=== PATIENT | male | born 1945 ===

== ENCOUNTER 2017-05-28 12:25 | Inpatient (IN) | payer MEDICARE ==
--- NOTE | 2017-05-28 14:28 | ED PDOC ---
HPI: Back Time Seen by Provider: 05/28/17 13:39 Chief Complaint (Nursing): Back Pain Chief Complaint (Provider): Back pain History Per: Patient History/Exam Limitations: no limitations Onset/Duration Of Symptoms: Persistent Current Symptoms Are (Timing): Still Present Additional Complaint(s): 72 year old male presents to the ER with complains of lower back pain, ongoing for months. Patient reports taking over the counter medications and prescribed medications with no improvement or relief. He has a history of multiple lumbar spine herniated discs and degenerative disease. Patients denies any associated fall, injury, trauma, weakness, numbness, tingling, or incontinence. PMD: Toro Mcdaniel Past Medical History Reviewed: Historical Data, Nursing Documentation, Vital Signs Vital Signs: Last Vital Signs Temp 98.3 F 05/28/17 12:54 Pulse 79 05/28/17 12:54 Resp 18 05/28/17 12:54 BP 124/70 05/28/17 12:54 Pulse Ox 99 05/28/17 12:54 - Medical History PMH: Back Problems (lumbar spine herniated discs) - Family History Family History: States: Unknown Family Hx - Home Medications Home Medications: Ambulatory Orders Medication Instructions Recorded Aspirin [Ecotrin] 81 mg PO BID 05/28/17 Atorvastatin [Lipitor] 10 mg PO HS 05/28/17 Cyanocobalamin [Vitamin B12] 500 mcg PO DAILY 05/28/17 Dutasteride [Avodart] 0.5 mg PO HS 05/28/17 Ergocalciferol (Vitamin D2) 50,000 unit PO MO 05/28/17 [Vitamin D2] Losartan [Cozaar] 100 mg PO DAILY 05/28/17 Metformin ER [Glucophage XR] 500 mg PO QPM 05/28/17 Metoprolol Succinate [Toprol XL] 100 mg PO DAILY 05/28/17 Niacin [Niacin ER] 750 mg PO HS 05/28/17 Nitroglycerin 0.4 mg/hr [Nitro-Dur 1 patch TD DAILY 05/28/17 0.4 mg/hr Patch] Omeprazole [Omeprazole] 40 mg PO DAILY 05/28/17 Silodosin [Rapaflo] 4 mg PO HS 05/28/17 amLODIPine [Norvasc] 5 mg PO DAILY 05/28/17 - Allergies Allergies/Adverse Reactions: Allergies Allergy/AdvReac Type Severity Reaction Status Date / Time No Known Allergies Allergy Verified 05/28/17 12:54 Review of Systems ROS Statement: Except As Marked, All Systems Reviewed And Found Negative Genitourinary Male: Negative for: Incontinence Musculoskeletal: Positive for: Back Pain (lower) Neurological: Negative for: Weakness, Numbness, Dizziness Physical Exam - Reviewed Nursing Documentation Reviewed: Yes Vital Signs Reviewed: Yes - Physical Exam Appears: Positive for: Well, Non-toxic, No Acute Distress Head Exam: Positive for: ATRAUMATIC, NORMAL INSPECTION, NORMOCEPHALIC Skin: Positive for: Normal Color, Warm, Dry Eye Exam: Positive for: Normal appearance Neck: Positive for: Normal, Painless ROM Cardiovascular/Chest: Positive for: Regular Rate, Rhythm. Negative for: Murmur Respiratory: Positive for: Normal Breath Sounds. Negative for: Accessory Muscle Use, Respiratory Distress Gastrointestinal/Abdominal: Positive for: Normal Exam, Soft. Negative for: Tenderness Back: Positive for: Normal Inspection. Negative for: L CVA Tenderness, R CVA Tenderness, Vertebral Tenderness Extremity: Positive for: Normal ROM. Negative for: Deformity Neurologic/Psych: Positive for: Alert, Oriented. Negative for: Motor/Sensory Deficits - ECG O2 Sat by Pulse Oximetry: 99 (RA) Pulse Ox Interpretation: Normal Medical Decision Making Medical Decision Making: Time: 14:01 Initial Plan: --EKG --CMP --CBC --PTT --Prothrombin Time -- Chest X-Ray Discussed with Dr. Mcdaniel for admission. Scribe Attestation: Documented by Love Dudley, acting as a scribe for Shantel Mercado PA-C Provider Scribe Attestation: All medical record entries made by the Scribe were at my direction and personally dictated by me. I have reviewed the chart and agree that the record accurately reflects my personal performance of the history, physical exam, medical decision making, and the department course for this patient. I have also personally directed, reviewed, and agree with the discharge instructions and disposition. Disposition - Clinical Impression Clinical Impression: Back pain - Disposition Disposition: Routine/Home Disposition Time: 14:40 Condition: GOOD Forms: [facility] (Indonesian) - Pt Status Changed To: Hospital Disposition Of: Inpatient - Admit Certification Admit to Inpatient:: After my assessment, the patient will require hospitalization for at least two midnights. This is because of the severity of symptoms shown, intensity of services needed, and/or the medical risk in this patient being treated as an outpatient. - POA Present On Arrival: None
[2017-05-28 14:39] LABS: BASO % 0.6 % (0.0-2.0); EOS # 0.1 K/uL (0.0-0.7); EOS % 0.9 % (0.0-4.0); HEMOGLOBIN 14.2 g/dL (12.0-18.0); LYMPH # 2.3 K/uL (1.0-4.3); LYMPH % 32.7 % (20.0-40.0); MEAN CELL VOLUME 99.1 fl (80.0-94.0); MEAN CORPUSCULAR HEMOGLOBIN 33.5 pg (27.0-31.0); MEAN CORPUSCULAR HGB CONC 33.8 g/dL (33.0-37.0); MEAN PLATELET VOLUME 8.4 fl (7.2-11.7); MONO # 0.7 K/uL (0.0-0.8); MONO % 10.6 % (0.0-10.0); NEUT # 3.8 K/uL (1.8-7.0); NEUT % 55.2 % (50.0-75.0); NRBC % 0.3 % (0.0-0.0); RBC 4.24 Mil/uL (4.40-5.90); RED CELL DISTRIBUTION WIDTH 20.6 % (11.5-14.5)
[2017-05-28 14:47] LABS: ALB/GLOB RATIO 1.3 (1.0-2.1); ALBUMIN 4.5 g/dL (3.5-5.0); ALT/SGPT 31 U/L (21-72); AST/SGOT 34 U/L (17-59); BLOOD UREA NITROGEN 12 mg/dl (9-20); CALCIUM 9.7 mg/dL (8.4-10.2); GFR AFRICAN-AMERICAN > 60; GFR NON-AFRICAN AMERICAN > 60
[2017-05-28 14:48] LABS: INR 1.1 (0.9-1.2)
--- NOTE | 2017-05-28 15:12 | RAD ---
HISTORY: back pain COMPARISON: No prior. TECHNIQUE: Chest PA and lateral FINDINGS: LUNGS: Linear scar/ atelectasis at left base. No infiltrate. PLEURA: No significant pleural effusion identified. No pneumothorax apparent. CARDIOVASCULAR: Normal. OSSEOUS STRUCTURES: No significant abnormalities. VISUALIZED UPPER ABDOMEN: Normal. OTHER FINDINGS: None. IMPRESSION: No active disease.
--- NOTE | 2017-05-28 15:48 | CP.PCM.HP ---
<Familia Asencio - Last Filed: 05/28/17 17:46> History of Present Illness - History of Present Illness History of Present Illness: 72 y/o M with Hx of controlled DM and chronic back pain due to multilevel Lumbar disc herniation presents to ED c/o persistent lower back pain radiating to both legs. Patient was recently evaluated by Neurosurgery and was advised to come to ED if no improvement for poss Sx eval. Denies urinary incontinence or retention, denies feces incontinence, saddle anesthesia, headache or fever. He states his BS levels are controlled and is compliant with home meds. Patient states his lower back pain is intermittent, has been present for months, does not improve with PO advil but he hasnt tried another PO med recently prescribed. Denies hx of trauma. Pain started one morning after waking up. PMD Dr Mcdaniel PMHx: DM, BPH, Hyperlipidemia Present on Admission - Present on Admission Any Indicators Present on Admission: No Review of Systems - Review of Systems All systems: reviewed and no additional remarkable complaints except - Musculoskeletal Musculoskeletal: Back Pain, Radiating Pain into Limb. absent: Abnormal Gait, Deformity, Numbness, Stiffness, Tingling Past Patient History - Past Social History Smoking Status: Never Smoked - CARDIAC Hx Hypertension: Yes - PULMONARY Hx Respiratory Disorders: No - ENDOCRINE/METABOLIC Hx Diabetes Mellitus Type 2: Yes - MUSCULOSKELETAL/RHEUMATOLOGICAL Hx Back Pain: Yes Hx Herniated Disk: Yes - GASTROINTESTINAL Hx Gastrointestinal Disorders: No - GENITOURINARY/GYNECOLOGICAL Hx Prostate Problems: Yes - PSYCHIATRIC Hx Substance Use: No - SURGICAL HISTORY Other/Comment: Hypospadias and Inguinal Hernia - ANESTHESIA Hx Anesthesia: Yes Meds Allergies/Adverse Reactions: Allergies Allergy/AdvReac Type Severity Reaction Status Date / Time lactose Allergy DIARRHEA Verified 05/28/17 17:02 Physical Exam - Constitutional Appears: Non-toxic, No Acute Distress - Head Exam Head Exam: ATRAUMATIC - Eye Exam Eye Exam: EOMI, PERRL - ENT Exam ENT Exam: Mucous Membranes Moist - Respiratory Exam Respiratory Exam: Clear to Auscultation Bilateral, NORMAL BREATHING PATTERN. absent: Rales, Wheezes, Respiratory Distress - Cardiovascular Exam Cardiovascular Exam: REGULAR RHYTHM, +S1, +S2. absent: Gallop - GI/Abdominal Exam GI & Abdominal Exam: Normal Bowel Sounds, Soft. absent: Distended, Rebound, Rigid, Tenderness - Extremities Exam Extremities exam: Positive for: pedal edema (+1). Negative for: calf tenderness , joint swelling - Back Exam Back exam: absent: CVA tenderness (L), CVA tenderness (R), paraspinal tenderness , rash noted, tenderness Additional comments: Straight leg test neg. Back pain elicited with movements - Neurological Exam Neurological exam: Alert, Oriented x3, Reflexes Normal - Psychiatric Exam Psychiatric exam: Normal Affect, Normal Mood - Skin Skin Exam: Normal Color, Warm Results - Vital Signs Recent Vital Signs: Last Vital Signs Temp 98.3 F 05/28/17 12:54 Pulse 79 05/28/17 12:54 Resp 18 05/28/17 12:54 BP 124/70 05/28/17 12:54 Pulse Ox 99 05/28/17 14:41 - Labs Result Diagrams: 05/28/17 14:26 05/28/17 14:26 Labs: Laboratory Results - last 24 hr 05/28/17 05/28/17 05/28/17 14:26 14:26 14:26 WBC 7.0 RBC 4.24 L Hgb 14.2 Hct 42.0 MCV 99.1 H MCH 33.5 H MCHC 33.8 RDW 20.6 H Plt Count 327 MPV 8.4 Neut % (Auto) 55.2 Lymph % (Auto) 32.7 [place] % (Auto) 10.6 H Eos % (Auto) 0.9 Baso % (Auto) 0.6 Neut # (Auto) 3.8 Lymph # (Auto) 2.3 [place] # (Auto) 0.7 Eos # (Auto) 0.1 Baso # (Auto) 0.0 PT 12.0 INR 1.1 APTT 30.0 Sodium 145 Potassium 3.9 Chloride 104 Carbon Dioxide 28 Anion Gap 17 BUN 12 Creatinine 0.8 Est GFR ( Amer) > 60 Est GFR (Non-Af Amer) > 60 Random Glucose 97 Calcium 9.7 Total Bilirubin 0.8 AST 34 ALT 31 Alkaline Phosphatase 75 Total Protein 8.1 Albumin 4.5 Globulin 3.6 Albumin/Globulin Ratio 1.3 Assessment & Plan - Assessment and Plan (Free Text) Assessment: 72 y/o M with PMhx of DM and chronic back pain admitted for intractable pain and lumbar disc herniations Multilevel lumbar disc herniations Chronic Patient has MRI done in 2017 that shows multilevel lumbar disc herniation Neurosurgery consult appreciated NO signs of spinal cord compression at this time Intractable pain. Tramadol PO q6h PRN for pain since pain is now 0/10 at ED NPO diet after midnight Patient is cleared for lower back Sx if needed at this time. Controlled DM w/o hyperglycemia C/W Metformin Accuchecks HTN Controlled C/W home meds EKG normal sinus. NO ischemia DVT prophylaxis SCDs for now <Toro Mcdaniel - Last Filed: 06/01/17 15:13> Results - Vital Signs Recent Vital Signs: Last Vital Signs Temp 98.7 F 06/01/17 12:19 Pulse 88 06/01/17 12:19 Resp 18 06/01/17 12:19 BP 136/78 06/01/17 12:19 Pulse Ox 95 06/01/17 12:19 - Labs Result Diagrams: 06/01/17 05:10 06/01/17 05:10 Labs: Laboratory Results - last 24 hr 05/31/17 05/31/17 06/01/17 15:44 22:06 05:10 WBC 13.1 H RBC 3.63 L Hgb 11.8 L Hct 35.9 MCV 99.0 H MCH 32.6 H MCHC 33.0 RDW 20.9 H Plt Count 284 MPV 8.7 Neut % (Auto) 71.5 Lymph % (Auto) 14.6 L [place] % (Auto) 13.1 H Eos % (Auto) 0.6 Baso % (Auto) 0.2 Neut # (Auto) 9.4 H Lymph # (Auto) 1.9 Nelson # (Auto) 1.7 H Eos # (Auto) 0.1 Baso # (Auto) 0.0 Sodium Potassium Chloride Carbon Dioxide Anion Gap BUN Creatinine Est GFR ( Amer) Est GFR (Non-Af Amer) POC Glucose (mg/dL) 115 H 118 H Random Glucose Calcium 06/01/17 06/01/17 06/01/17 05:10 05:44 11:24 WBC RBC Hgb Hct MCV MCH MCHC RDW Plt Count MPV Neut % (Auto) Lymph % (Auto) [place] % (Auto) Eos % (Auto) Baso % (Auto) Neut # (Auto) Lymph # (Auto) [place] # (Auto) Eos # (Auto) Baso # (Auto) Sodium 144 Potassium 3.7 Chloride 105 Carbon Dioxide 28 Anion Gap 15 BUN 19 Creatinine 1.0 Est GFR ( Amer) > 60 Est GFR (Non-Af Amer) > 60 POC Glucose (mg/dL) 125 H 110 Random Glucose 113 H Calcium 8.8 Assessment & Plan (1) Lumbar spondylosis Status: Acute (2) Herniated lumbar intervertebral disc Status: Acute (3) Hypertension Status: Acute (4) Prostatism Status: Acute (5) Confusion, postoperative Status: Acute - Assessment and Plan (Free Text) Plan: I was present during evaluation and discussed with Dr. Asencio re plans of care and mgt. Toro Mcdaniel M.D.
[2017-05-28] MEDS: Dextrose 5%/0.9% NS 1,000 ML IV SCH (23:52)
[2017-05-28] MEDS: SILODOSIN 4 MG PO SCH (23:52)
--- NOTE | 2017-05-29 07:02 | CP.PCM.CON ---
History of Present Illness - History of Present Illness History of Present Illness: Neurosurgical consult Dr. Headley 72M complains of low back pain and left leg pain x approx 6 months. He says one morning he woke up and he had shooting pain down his left leg and that it hasn' t stopped since. He works out regularly but is now unable to work out due to this pain. No improvement with PT. No changes in bowel or bladder. Denies numbness but says he feels electric tingling down leg regularly. He says the pain is not controlled with pain medication, and has not improved. NKDA Review of Systems - Review of Systems All systems: reviewed and no additional remarkable complaints except - Musculoskeletal Musculoskeletal: As Per HPI - Neurological Neurological: As Per HPI Past Patient History - Past Medical History & Family History Past Medical History?: Yes - Past Social History Smoking Status: Never Smoked - CARDIAC Hx Hypertension: Yes - PULMONARY Hx Respiratory Disorders: No - NEUROLOGICAL Hx Neurological Disorder: No - HEENT Hx HEENT Problems: No - RENAL Hx Chronic Kidney Disease: No - ENDOCRINE/METABOLIC Hx Diabetes Mellitus Type 2: Yes - HEMATOLOGICAL/ONCOLOGICAL Hx Blood Disorders: No - INTEGUMENTARY Hx Dermatological Problems: No - MUSCULOSKELETAL/RHEUMATOLOGICAL Hx Back Pain: Yes Hx Herniated Disk: Yes - GASTROINTESTINAL Hx Gastrointestinal Disorders: No - GENITOURINARY/GYNECOLOGICAL Hx Prostate Problems: Yes - PSYCHIATRIC Hx Substance Use: No - SURGICAL HISTORY Other/Comment: Hypospadias and Inguinal Hernia - ANESTHESIA Hx Anesthesia: Yes Meds Allergies/Adverse Reactions: Allergies Allergy/AdvReac Type Severity Reaction Status Date / Time lactose Allergy DIARRHEA Verified 05/28/17 17:02 - Medications Medications: Current Medications Amlodipine Besylate (Norvasc) 5 mg PO DAILY [facility] Atorvastatin Calcium (Lipitor) 10 mg PO [facility] Last Admin: 05/28/17 21:54 Dose: 10 mg Cyanocobalamin (Vitamin B12) 500 mcg PO DAILY [facility] Home Med (Dutasteride [Avodart]) 0.5 mg PO [facility] Last Admin: 05/28/17 23:51 Dose: Not Given Home Med (Silodosin [Rapaflo]) 4 mg PO [facility] Last Admin: 05/28/17 23:52 Dose: Not Given Dextrose/Sodium Chloride (Dextrose 5%/0.9% Ns 1000 Ml) 1,000 mls @ 60 mls/hr IV .[id number] [facility] Stop: 05/29/17 17:25 Last Admin: 05/28/17 23:52 Dose: 60 mls/hr Losartan Potassium (Cozaar) 100 mg PO DAILY [facility] Metformin HCl (Glucophage) 250 mg PO BIDWM [facility] Last Admin: 05/28/17 17:26 Dose: Not Given Metoprolol Succinate (Toprol Xl) 100 mg PO DAILY [facility] Nitroglycerin (Nitro-Dur 0.4 Mg/Hr Patch) 1 patch TD DAILY [facility] Pantoprazole Sodium (Protonix Ec Tab) 40 mg PO DAILY [facility] Tramadol HCl (Ultram) 50 mg PO Q6 PRN PRN Reason: Pain, moderate (4-7) Physical Exam - Constitutional Appears: Well, No Acute Distress - Head Exam Head Exam: ATRAUMATIC - Respiratory Exam Respiratory Exam: NORMAL BREATHING PATTERN - Neurological Exam Neurological exam: Alert, Oriented x3 - Expanded Neurological Exam Expanded Sensory exam: Lower Extremity Light Touch: Normal Neuro motor strength exam: Left Lower Extremity: 5 (5/5 great toe extension, DF/ PF, knee flex/ext), Right Lower Extremity: 5 DTR: Patellar Left: 2+, Patellar Right: 2+ - Psychiatric Exam Psychiatric exam: Normal Affect, Normal Mood - Skin Skin Exam: Dry, Intact, Normal Color, Warm Results - Vital Signs Recent Vital Signs: Last Vital Signs Temp 97.5 F L 05/28/17 23:31 Pulse 68 05/28/17 23:31 Resp 20 05/28/17 23:31 BP 105/64 05/28/17 23:31 Pulse Ox 97 05/28/17 23:31 - Labs Result Diagrams: 05/28/17 14:26 05/28/17 14:26 Labs: Laboratory Results - last 24 hr 05/28/17 05/28/17 05/28/17 14:26 14:26 14:26 WBC 7.0 RBC 4.24 L Hgb 14.2 Hct 42.0 MCV 99.1 H MCH 33.5 H MCHC 33.8 RDW 20.6 H Plt Count 327 MPV 8.4 Neut % (Auto) 55.2 Lymph % (Auto) 32.7 [place] % (Auto) 10.6 H Eos % (Auto) 0.9 Baso % (Auto) 0.6 Neut # (Auto) 3.8 Lymph # (Auto) 2.3 [place] # (Auto) 0.7 Eos # (Auto) 0.1 Baso # (Auto) 0.0 PT 12.0 INR 1.1 APTT 30.0 Sodium 145 Potassium 3.9 Chloride 104 Carbon Dioxide 28 Anion Gap 17 BUN 12 Creatinine 0.8 Est GFR ( Amer) > 60 Est GFR (Non-Af Amer) > 60 POC Glucose (mg/dL) Random Glucose 97 Calcium 9.7 Total Bilirubin 0.8 AST 34 ALT 31 Alkaline Phosphatase 75 Total Protein 8.1 Albumin 4.5 Globulin 3.6 Albumin/Globulin Ratio 1.3 05/28/17 05/28/17 05/29/17 16:53 21:21 05:01 WBC RBC Hgb Hct MCV MCH MCHC RDW Plt Count MPV Neut % (Auto) Lymph % (Auto) [place] % (Auto) Eos % (Auto) Baso % (Auto) Neut # (Auto) Lymph # (Auto) [place] # (Auto) Eos # (Auto) Baso # (Auto) PT INR APTT Sodium Potassium Chloride Carbon Dioxide Anion Gap BUN Creatinine Est GFR ( Amer) Est GFR (Non-Af Amer) POC Glucose (mg/dL) 102 96 99 Random Glucose Calcium Total Bilirubin AST ALT Alkaline Phosphatase Total Protein Albumin Globulin Albumin/Globulin Ratio Assessment & Plan (1) Lumbar spondylosis Assessment and Plan: NPO for OR today for L4/L5 laminectomy/fusion risks/benefits/alt of surgical intervention explained to patient who verbalized understanding and consented to procedure labs and imaging reviewed d/w Dr. headley, agrees with above Status: Acute
[2017-05-29] MEDS ORDERED: Succinylcholine 200 mg/10 ml Inj IV ONE (07:15)
[2017-05-29] MEDS ORDERED: Rocuronium 10 mg/ml (5 ml) ONE (07:15)
[2017-05-29] MEDS ORDERED: Etomidate 20 mg/10ml Inj IV ONE (07:15)
[2017-05-29] MEDS ORDERED: Phenylephrine 10 mg/ml Inj ONE (07:19)
[2017-05-29] MEDS ORDERED: Midazolam 2 MG/2 ML VIAL ONE (07:35)
[2017-05-29] MEDS ORDERED: Lidocaine 4% (Laryng-O-Jet) Kit MM ONE (07:35)
[2017-05-29] MEDS: Metoprolol Succinate 100 mg XL Tab PO SCH (07:48)
[2017-05-29] MEDS ORDERED: Thrombin Topical 5,000 Int Units Spray Kit ONE (07:49)
[2017-05-29] MEDS ORDERED: Lidocaine 1% Inj (20ml) ONE (07:49)
[2017-05-29] MEDS ORDERED: Absorbable Gelatin Sponge Size 100 ONE (07:49)
[2017-05-29] MEDS ORDERED: Lidocaine 1% w Epi 1:100,000 Inj ONE (07:49)
[2017-05-29] MEDS ORDERED: Bacitracin Ointment 30 GM TUBE ONE (07:49)
[2017-05-29] MEDS ORDERED: Lactated Ringer's 1,000 ML IV ONE ×2 (07:55→09:30)
[2017-05-29] MEDS ORDERED: Lidocaine/Epi 1% 1:100000 20 ML IJ ONE (08:15)
[2017-05-29] MEDS ORDERED: Neostigmine Methylsulfate 3mg/3ml Syringe IV ONE (08:45)
[2017-05-29] MEDS ORDERED: Bupivacaine HCl 0.25% PF (30 ml) Inj ONE (08:54)
[2017-05-29] MEDS ORDERED: HEMOSTATIC MATRIX 10 ML DIS.NEEDLE TOP ONE (09:15)
[2017-05-29] MEDS ORDERED: Absorbable Gelatin Sponge Size 100 TP ONE (09:20)
[2017-05-29] MEDS ORDERED: Bupivacaine HCl 0.25% PF (30 ml) Inj IJ ONE (09:20)
[2017-05-29] MEDS ORDERED: Dexamethasone 4 mg/1 ml ONE (09:20)
[2017-05-29] MEDS ORDERED: Thrombin Topical 5,000 Int Units Spray Kit TOP ONE (09:20)
[2017-05-29] MEDS ORDERED: Morphine 4 MG/ML VIAL IVP PRN (10:21)
[2017-05-29] MEDS ORDERED: Sodium Chloride 0.9% 1,000 ML IV SCH (10:30)
--- NOTE | 2017-05-29 11:40 | CP.PCM.PN ---
<Familia Asencio - Last Filed: 05/29/17 13:40> Subjective - Date & Time of Evaluation Date of Evaluation: 05/29/17 Time of Evaluation: 11:10 - Subjective Subjective: Patient seen in recovery room s/p Sx. Still slightly somnolent cos anesthesia. Feeling ok. Pain controlled. VS stable Objective - Vital Signs/Intake and Output Vital Signs (last 24 hours): Temp Pulse Resp BP Pulse Ox 97.6 F 75 18 132/79 99 05/29/17 10:10 05/29/17 11:25 05/29/17 11:25 05/29/17 11:25 05/29/17 11:25 Intake and Output: 05/29/17 05/29/17 06:59 18:59 Intake Total 1200 Balance 1200 - Medications Medications: Current Medications Acetaminophen (Tylenol 325mg Tab) 650 mg PO Q4 PRN PRN Reason: Fever 101 degrees fahrenheit Amlodipine Besylate (Norvasc) 5 mg PO DAILY [facility] Atorvastatin Calcium (Lipitor) 10 mg PO [facility] Last Admin: 05/28/17 21:54 Dose: 10 mg Cyanocobalamin (Vitamin B12) 500 mcg PO DAILY [facility] Cyclobenzaprine HCl (Flexeril) 5 mg PO TID PRN PRN Reason: Muscle spasm Docusate Sodium (Colace) 100 mg PO BID [facility] Home Med (Dutasteride [Avodart]) 0.5 mg PO [facility] Last Admin: 05/28/17 23:51 Dose: Not Given Home Med (Silodosin [Rapaflo]) 4 mg PO [facility] Last Admin: 05/28/17 23:52 Dose: Not Given Dextrose/Sodium Chloride (Dextrose 5%/0.9% Ns 1000 Ml) 1,000 mls @ 60 mls/hr IV .[id number] [facility] Stop: 05/29/17 17:25 Last Admin: 05/28/17 23:52 Dose: 60 mls/hr Cefazolin Sodium 2 gm/ Sodium (Chloride) 100 mls @ 100 mls/hr IVPB Q8H [facility] PRN Reason: Protocol Sodium Chloride (Sodium Chloride 0.9%) 1,000 mls @ 100 mls/hr IV .Q10H [facility] Stop: 05/29/17 20:29 Insulin Human Regular (Humulin R) 0 units SC ACHS [facility] PRN Reason: Protocol Losartan Potassium (Cozaar) 100 mg PO DAILY [facility] Metformin HCl (Glucophage) 250 mg PO BIDWM [facility] Last Admin: 05/28/17 17:26 Dose: Not Given Metoprolol Succinate (Toprol Xl) 100 mg PO DAILY [facility] Last Admin: 05/29/17 07:48 Dose: 100 mg Morphine Sulfate (Morphine) 4 mg IVP Q4 PRN PRN Reason: Pain, severe (8-10) Nitroglycerin (Nitro-Dur 0.4 Mg/Hr Patch) 1 patch TD DAILY [facility] Ondansetron HCl (Zofran Inj) 4 mg IVP ONCE PRN PRN Reason: Nausea/Vomiting Oxycodone/Acetaminophen (Percocet 5/325 Mg Tab) 2 tab PO Q4 PRN PRN Reason: Pain, moderate (4-7) Stop: 06/01/17 10:22 Pantoprazole Sodium (Protonix Ec Tab) 40 mg PO DAILY [facility] Tramadol HCl (Ultram) 50 mg PO Q6 PRN PRN Reason: Pain, moderate (4-7) - Labs Labs: 05/28/17 14:26 05/28/17 14:26 PT 12.0 Seconds (9.8-13.1) 05/28/17 14:26 INR 1.1 (0.9-1.2) 05/28/17 14:26 APTT 30.0 Seconds (25.6-37.1) 05/28/17 14:26 - Constitutional Appears: Non-toxic, No Acute Distress - Head Exam Head Exam: ATRAUMATIC - Eye Exam Eye Exam: EOMI, PERRL - ENT Exam ENT Exam: Mucous Membranes Moist - Respiratory Exam Respiratory Exam: Clear to Ausculation Bilateral, NORMAL BREATHING PATTERN - Cardiovascular Exam Cardiovascular Exam: REGULAR RHYTHM. absent: Gallop - GI/Abdominal Exam GI & Abdominal Exam: Soft. absent: Tenderness - Extremities Exam Extremities Exam: Pedal Edema (+1). absent: Calf Tenderness - Neurological Exam Neurological Exam: Alert, Awake - Skin Skin Exam: Normal Color, Warm Assessment and Plan - Assessment and Plan (Free Text) Assessment: Multilevel lumbar disc herniations S/P Sx POD #0 Neurosurgery consult appreciated C/W pain control Restart diet and advance as tolerated Controlled DM w/o hyperglycemia C/W Metformin Accuchecks ISS low dose HTN Controlled C/W home meds EKG normal sinus. NO ischemia <McdanielToro Derek - Last Filed: 06/01/17 15:14> Objective - Vital Signs/Intake and Output Vital Signs (last 24 hours): Temp Pulse Resp BP Pulse Ox 98.7 F 88 18 136/78 95 06/01/17 12:19 06/01/17 12:19 06/01/17 12:19 06/01/17 12:19 06/01/17 12:19 Intake and Output: 06/01/17 06/01/17 06:59 18:59 Intake Total 980 Output Total 1860 Balance -880 - Medications Medications: Current Medications Acetaminophen (Tylenol 325mg Tab) 650 mg PO Q4 PRN PRN Reason: Fever 101 degrees fahrenheit Amlodipine Besylate (Norvasc) 5 mg PO DAILY [facility] Last Admin: 06/01/17 10:15 Dose: 5 mg Atorvastatin Calcium (Lipitor) 10 mg PO HS [facility] Last Admin: 05/31/17 21:21 Dose: 10 mg Cyanocobalamin (Vitamin B12) 500 mcg PO DAILY [facility] Last Admin: 06/01/17 10:16 Dose: 500 mcg Docusate Sodium (Colace) 100 mg PO BID [facility] Last Admin: 06/01/17 10:14 Dose: 100 mg Enoxaparin Sodium (Lovenox) 40 mg SC DAILY [facility] PRN Reason: Protocol Last Admin: 06/01/17 10:14 Dose: 40 mg Home Med (Dutasteride [Avodart]) 0.5 mg PO HS [facility] Last Admin: 05/31/17 21:20 Dose: 0.5 mg Home Med (Silodosin [Rapaflo]) 4 mg PO HS [facility] Last Admin: 05/31/17 21:20 Dose: 4 mg Cefazolin Sodium 2 gm/ Sodium (Chloride) 100 mls @ 100 mls/hr IVPB Q8H [facility] PRN Reason: Protocol Last Admin: 06/01/17 10:16 Dose: 100 mls/hr Insulin Human Regular (Humulin R) 0 units SC [facility] PRN Reason: Protocol Last Admin: 06/01/17 12:24 Dose: Not Given Losartan Potassium (Cozaar) 100 mg PO DAILY [facility] Last Admin: 06/01/17 10:15 Dose: 100 mg Metformin HCl (Glucophage) 250 mg PO BIDWM [facility] Last Admin: 06/01/17 10:15 Dose: 250 mg Metoprolol Succinate (Toprol Xl) 100 mg PO DAILY [facility] Last Admin: 06/01/17 10:14 Dose: 100 mg Morphine Sulfate (Morphine) 4 mg IVP Q4 PRN PRN Reason: Pain, severe (8-10) Nitroglycerin (Nitro-Dur 0.4 Mg/Hr Patch) 1 patch TD DAILY [facility] Last Admin: 06/01/17 10:22 Dose: 1 patch Ondansetron HCl (Zofran Inj) 4 mg IVP ONCE PRN PRN Reason: Nausea/Vomiting Oxycodone/Acetaminophen (Percocet 5/325 Mg Tab) 1 tab PO Q4 PRN PRN Reason: Pain, moderate (4-7) Stop: 06/02/17 15:01 Last Admin: 06/01/17 06:17 Dose: 1 tab Pantoprazole Sodium (Protonix Ec Tab) 40 mg PO DAILY [facility] Last Admin: 06/01/17 10:14 Dose: 40 mg Tamsulosin HCl (Flomax) 0.4 mg PO DAILY [facility] Last Admin: 06/01/17 12:24 Dose: Not Given - Labs Labs: 06/01/17 05:10 06/01/17 05:10 PT 12.0 Seconds (9.8-13.1) 05/28/17 14:26 INR 1.1 (0.9-1.2) 05/28/17 14:26 APTT 30.0 Seconds (25.6-37.1) 05/28/17 14:26 Assessment and Plan (1) Lumbar spondylosis Status: Acute (2) Herniated lumbar intervertebral disc Status: Acute (3) Hypertension Status: Acute (4) Prostatism Status: Acute (5) Confusion, postoperative Status: Acute - Assessment and Plan (Free Text) Plan: I was present during evaluation and discussed with Dr Asencio re plans of care and mgt. Toro Mcdaniel M.D.
[2017-05-29] MEDS ORDERED: HYDROmorphone 0.5 mg/0.5 ml ISec IVP PRN (11:47)
[2017-05-29] MEDS: CYANOCOBALAMIN 500 MCG TAB PO SCH (12:29)
[2017-05-29] MEDS: Nitroglycerin 0.4 mg/hr Top Patch TD SCH (12:29)
[2017-05-29] MEDS: Pantoprazole 40 mg EC Tab PO SCH (12:29)
[2017-05-29] MEDS: Oxycodone/Acetaminophen 5/325 mg Tab PO PRN ×2 (14:01→23:23)
--- NOTE | 2017-05-29 14:31 | OP ---
PROCEDURE DATE: 05/29/2017 PREOPERATIVE DIAGNOSIS: Lumbar spondylosis at L4-5. POSTOPERATIVE DIAGNOSIS: Lumbar spondylosis at L4-5. PROCEDURE: L4-5 lumbar laminectomy, L4-5 pedicle screw fixation and instrumentation using Amendia/spinal element system, L4-5 posterolateral fusion. Fluoroscopy has been used. Microscope has been used. SURGEON: Teo Sweet MD ASSISTANTS: Luis Felipe and Pacheco Thomas PA-C. DESCRIPTION OF PROCEDURE: The patient was brought to the operating room, anesthetized with general endotracheal anesthesia, placed in a prone position on the Jet table. Care was taken to protect all the pressure points. Back of the lumbar area thoroughly prepped and draped in same sterile manner after marking of the skin incision for lumbar lamina and fusion at L4-5. After prepping and draping the area, the skin has been incised. Bleeding skins have been controlled with bipolar metal tile lather. After using a Bovie metal tile lather, paraspinal muscles have been detached, attachments of spinous process and lamina of L4-5. Identification of levels has been done with the help of fluoroscopy. There was significant amount of medial facet hypertrophy and distortion of anatomy. Carefully all the _over grown bone ____ has been drilled and identification of levels and landmarks have been achieved. By using traditional landmarks, point of entry had been noted for pedicle screws at L4-L5. Initially, a K-wire, later a drill has been used. Polyaxial titanium screws of Amendia system has been placed in the pedicles of L4 and L5. Titanium rods had been placed, cap nuts had been used in order to secure them. After that, under magnification, the spinous process of L4 and L5 had been removed. By using a high speed drill, the lamina of L4-5 and medial part of the L4 had been drilled to actual thickness. By using a fine Kerrison punch, thinned out the lamina, medial part of the facets and ligamentum flavum which was buckled and thickened had been removed decompressing this area. After that, lateral aspect of facet joint, transverse process had been decorticated, demineralized bone placed in the area achieving a posterolateral fusion. Hemostasis best achieved. Jet drain placed on the wound and brought out through a separate stab neck skin incision. Muscles and fascia were closed with 1 Vicryl, subcutaneous tissue with 3 Vicryl and skin had been closed with intradermal 3 Vicryl stitches. The patient tolerated the procedure, and after procedure, mobilized to the recovery room in stabilized condition. Teo Sweet MD [facility]
[2017-05-29] MEDS: Insulin Regular 100 units/ml SC SCH ×3 (17:00→21:33)
[2017-05-29] MEDS: ceFAZolin 2 GM in Sodium Chloride 0.9% 100 ML IVPB SCH (17:10)
[2017-05-29] MEDS: Dextrose 5%/0.9% NS 1,000 ML IV SCH (18:29)
[2017-05-29] MEDS: SILODOSIN 4 MG PO SCH (21:30)
--- NOTE | 2017-05-29 22:22 | CARD ---
APPROVED REPORT EKG Measurement Heart [id number] <Conclusion> Normal sinus rhythm Normal ECG
[2017-05-30] MEDS: ceFAZolin 2 GM in Sodium Chloride 0.9% 100 ML IVPB SCH ×3 (00:38→17:00)
[2017-05-30 06:59] LABS: HEMOGLOBIN 12.3 g/dL (12.0-18.0); MEAN CELL VOLUME 98.9 fl (80.0-94.0); MEAN CORPUSCULAR HEMOGLOBIN 32.9 pg (27.0-31.0); MEAN CORPUSCULAR HGB CONC 33.3 g/dL (33.0-37.0); RBC 3.75 Mil/uL (4.40-5.90); RED CELL DISTRIBUTION WIDTH 20.7 % (11.5-14.5); WHITE BLOOD COUNT 14.4 K/uL (4.8-10.8)
[2017-05-30 07:30] LABS: BLOOD UREA NITROGEN 18 mg/dl (9-20); CALCIUM 8.7 mg/dL (8.4-10.2); GFR AFRICAN-AMERICAN > 60; GFR NON-AFRICAN AMERICAN > 60
[2017-05-30] MEDS: Metoprolol Succinate 100 mg XL Tab PO SCH (08:55)
[2017-05-30] MEDS: CYANOCOBALAMIN 500 MCG TAB PO SCH (08:55)
[2017-05-30] MEDS: Insulin Regular 100 units/ml SC SCH ×4 (08:57→22:49)
[2017-05-30] MEDS: Pantoprazole 40 mg EC Tab PO SCH (08:58)
[2017-05-30] MEDS: Enoxaparin 40 mg Syringe SC SCH (09:00)
--- NOTE | 2017-05-30 11:51 | RAD ---
PROCEDURE: Intraoperative fluoroscopy HISTORY: PLIF COMPARISON: Not available TECHNIQUE: Intraoperative fluoroscopy was provided for epidural injection. Total time of fluoroscopy was 22.5 seconds. FINDINGS: A single fluoroscopic spot film is submitted. IMPRESSION: Fluoroscopy provided.
[2017-05-30] MEDS: Nitroglycerin 0.4 mg/hr Top Patch TD SCH (12:16)
[2017-05-30] MEDS: Oxycodone/Acetaminophen 5/325 mg Tab PO PRN (12:16)
--- NOTE | 2017-05-30 12:38 | CP.PCM.PN ---
Subjective - Date & Time of Evaluation Date of Evaluation: 05/30/17 Time of Evaluation: 07:45 - Subjective Subjective: Patient was seen and examined at bedside comfortable. Pain is well controlled. Tolerating diet well. No acute events overnight. Objective - Vital Signs/Intake and Output Vital Signs (last 24 hours): Temp Pulse Resp BP Pulse Ox 99.2 F 93 H 18 128/78 94 L 05/30/17 11:53 05/30/17 12:16 05/30/17 11:53 05/30/17 12:16 05/30/17 11:53 Intake and Output: 05/30/17 05/30/17 06:59 18:59 Intake Total 1500 Output Total 1160 Balance 340 - Medications Medications: Current Medications Acetaminophen (Tylenol 325mg Tab) 650 mg PO Q4 PRN PRN Reason: Fever 101 degrees fahrenheit Amlodipine Besylate (Norvasc) 5 mg PO DAILY [facility] Last Admin: 05/30/17 09:00 Dose: 5 mg Atorvastatin Calcium (Lipitor) 10 mg PO HS [facility] Last Admin: 05/29/17 21:28 Dose: 10 mg Cyanocobalamin (Vitamin B12) 500 mcg PO DAILY [facility] Last Admin: 05/30/17 08:55 Dose: 500 mcg Cyclobenzaprine HCl (Flexeril) 5 mg PO TID PRN PRN Reason: Muscle spasm Last Admin: 05/30/17 09:01 Dose: 5 mg Docusate Sodium (Colace) 100 mg PO BID [facility] Last Admin: 05/30/17 08:54 Dose: 100 mg Enoxaparin Sodium (Lovenox) 40 mg SC DAILY [facility] PRN Reason: Protocol Last Admin: 05/30/17 09:00 Dose: 40 mg Home Med (Dutasteride [Avodart]) 0.5 mg PO HS [facility] Last Admin: 05/29/17 21:30 Dose: 0.5 mg Home Med (Silodosin [Rapaflo]) 4 mg PO [facility] Last Admin: 05/29/17 21:30 Dose: 4 mg Cefazolin Sodium 2 gm/ Sodium (Chloride) 100 mls @ 100 mls/hr IVPB Q8H [facility] PRN Reason: Protocol Last Admin: 05/30/17 09:00 Dose: 100 mls/hr Insulin Human Regular (Humulin R) 0 units SC ACHS [facility] PRN Reason: Protocol Last Admin: 05/30/17 12:29 Dose: Not Given Losartan Potassium (Cozaar) 100 mg PO DAILY [facility] Last Admin: 05/30/17 08:56 Dose: 100 mg Metformin HCl (Glucophage) 250 mg PO BIDWM [facility] Last Admin: 05/30/17 08:56 Dose: 250 mg Metoprolol Succinate (Toprol Xl) 100 mg PO DAILY [facility] Last Admin: 05/30/17 08:55 Dose: 100 mg Morphine Sulfate (Morphine) 4 mg IVP Q4 PRN PRN Reason: Pain, severe (8-10) Nitroglycerin (Nitro-Dur 0.4 Mg/Hr Patch) 1 patch TD DAILY [facility] Last Admin: 05/30/17 12:16 Dose: 1 patch Ondansetron HCl (Zofran Inj) 4 mg IVP ONCE PRN PRN Reason: Nausea/Vomiting Oxycodone/Acetaminophen (Percocet 5/325 Mg Tab) 2 tab PO Q4 PRN PRN Reason: Pain, moderate (4-7) Stop: 06/01/17 10:22 Last Admin: 05/30/17 12:16 Dose: 2 tab Pantoprazole Sodium (Protonix Ec Tab) 40 mg PO DAILY [facility] Last Admin: 05/30/17 08:58 Dose: 40 mg Tamsulosin HCl (Flomax) 0.4 mg PO DAILY [facility] Last Admin: 05/30/17 12:13 Dose: 0.4 mg Tramadol HCl (Ultram) 50 mg PO Q6 PRN PRN Reason: Pain, moderate (4-7) - Labs Labs: 05/30/17 05:30 05/30/17 05:30 PT 12.0 Seconds (9.8-13.1) 05/28/17 14:26 INR 1.1 (0.9-1.2) 05/28/17 14:26 APTT 30.0 Seconds (25.6-37.1) 05/28/17 14:26 - Constitutional Appears: No Acute Distress - ENT Exam ENT Exam: Mucous Membranes Moist - Back Exam Additional comments: Dressings clean dry and intact. TAN drains x 2 intact with mild to mod serosanguinous drainage. - Neurological Exam Neurological Exam: Alert, Awake, Oriented x3, Reflexes Normal Neuro motor strength exam: Left Lower Extremity: 5, Right Lower Extremity: 5 - Psychiatric Exam Psychiatric exam: Normal Affect, Normal Mood - Skin Skin Exam: Normal Color Assessment and Plan (1) Lumbar spondylosis Assessment & Plan: Patient is POD#1 from L4-L5 laminectomy and fusion doing well. -Will leave TAN drains in x2 and monitor drainage until tomorrow. -Dressing change tomorrow. -pain control -PT/OT WBAT -DVT ppx -Patient's case and plan was discussed in agreement with Dr. Sweet Status: Acute
[2017-05-30] MEDS: SILODOSIN 4 MG PO SCH (21:17)
[2017-05-31] MEDS: ceFAZolin 2 GM in Sodium Chloride 0.9% 100 ML IVPB SCH ×3 (00:51→18:09)
[2017-05-31 05:43] LABS: HEMOGLOBIN 11.5 g/dL (12.0-18.0); MEAN CELL VOLUME 98.9 fl (80.0-94.0); MEAN CORPUSCULAR HEMOGLOBIN 32.9 pg (27.0-31.0); MEAN CORPUSCULAR HGB CONC 33.2 g/dL (33.0-37.0); RBC 3.5 Mil/uL (4.40-5.90); RED CELL DISTRIBUTION WIDTH 20.7 % (11.5-14.5); WHITE BLOOD COUNT 12.5 K/uL (4.8-10.8)
[2017-05-31 06:03] LABS: BLOOD UREA NITROGEN 20 mg/dl (9-20); CALCIUM 8.4 mg/dL (8.4-10.2); GFR AFRICAN-AMERICAN > 60; GFR NON-AFRICAN AMERICAN > 60
[2017-05-31] MEDS: Insulin Regular 100 units/ml SC SCH ×4 (06:55→22:07)
[2017-05-31] MEDS: Oxycodone/Acetaminophen 5/325 mg Tab PO PRN (06:59)
--- NOTE | 2017-05-31 09:28 | CP.PCM.PN ---
Subjective - Date & Time of Evaluation Date of Evaluation: 05/31/17 Time of Evaluation: 07:45 - Subjective Subjective: Patient was seen and examined at bedside. His back pain is well controlled with medication. He complains this AM of inability to void overnight with abdominal discomfort. He had similar complaints yesterday and was straight cathetered. Afterwards, he was able to urinate small amounts. He is tolerating diet well. Negative BM. Objective - Vital Signs/Intake and Output Vital Signs (last 24 hours): Temp Pulse Resp BP Pulse Ox 99.3 F 98 H 18 153/79 H 94 L 05/31/17 08:00 05/31/17 08:00 05/31/17 08:00 05/31/17 08:00 05/31/17 08:00 Intake and Output: 05/31/17 05/31/17 06:59 18:59 Intake Total 1220 Output Total 1250 Balance -30 - Medications Medications: Current Medications Acetaminophen (Tylenol 325mg Tab) 650 mg PO Q4 PRN PRN Reason: Fever 101 degrees fahrenheit Amlodipine Besylate (Norvasc) 5 mg PO DAILY [facility] Last Admin: 05/30/17 09:00 Dose: 5 mg Atorvastatin Calcium (Lipitor) 10 mg PO HS [facility] Last Admin: 05/30/17 21:17 Dose: 10 mg Cyanocobalamin (Vitamin B12) 500 mcg PO DAILY [facility] Last Admin: 05/30/17 08:55 Dose: 500 mcg Docusate Sodium (Colace) 100 mg PO BID [facility] Last Admin: 05/30/17 17:41 Dose: 100 mg Enoxaparin Sodium (Lovenox) 40 mg SC DAILY [facility] PRN Reason: Protocol Last Admin: 05/30/17 09:00 Dose: 40 mg Home Med (Dutasteride [Avodart]) 0.5 mg PO HS [facility] Last Admin: 05/30/17 21:17 Dose: 0.5 mg Home Med (Silodosin [Rapaflo]) 4 mg PO [facility] Last Admin: 05/30/17 21:17 Dose: 4 mg Cefazolin Sodium 2 gm/ Sodium (Chloride) 100 mls @ 100 mls/hr IVPB Q8H [facility] PRN Reason: Protocol Last Admin: 05/31/17 00:51 Dose: 100 mls/hr Insulin Human Regular (Humulin R) 0 units SC ACHS [facility] PRN Reason: Protocol Last Admin: 05/31/17 06:55 Dose: Not Given Losartan Potassium (Cozaar) 100 mg PO DAILY [facility] Last Admin: 05/30/17 08:56 Dose: 100 mg Metformin HCl (Glucophage) 250 mg PO BIDWM [facility] Last Admin: 05/30/17 17:42 Dose: 250 mg Metoprolol Succinate (Toprol Xl) 100 mg PO DAILY [facility] Last Admin: 05/30/17 08:55 Dose: 100 mg Morphine Sulfate (Morphine) 4 mg IVP Q4 PRN PRN Reason: Pain, severe (8-10) Nitroglycerin (Nitro-Dur 0.4 Mg/Hr Patch) 1 patch TD DAILY [facility] Last Admin: 05/30/17 12:16 Dose: 1 patch Ondansetron HCl (Zofran Inj) 4 mg IVP ONCE PRN PRN Reason: Nausea/Vomiting Oxycodone/Acetaminophen (Percocet 5/325 Mg Tab) 1 tab PO Q4 PRN PRN Reason: Pain, moderate (4-7) Stop: 06/02/17 15:01 Last Admin: 05/31/17 06:59 Dose: 1 tab Pantoprazole Sodium (Protonix Ec Tab) 40 mg PO DAILY [facility] Last Admin: 05/30/17 08:58 Dose: 40 mg Tamsulosin HCl (Flomax) 0.4 mg PO DAILY [facility] Last Admin: 05/30/17 12:13 Dose: 0.4 mg - Labs Labs: 05/31/17 05:00 05/31/17 05:00 PT 12.0 Seconds (9.8-13.1) 05/28/17 14:26 INR 1.1 (0.9-1.2) 05/28/17 14:26 APTT 30.0 Seconds (25.6-37.1) 05/28/17 14:26 - Constitutional Appears: No Acute Distress - Eye Exam Eye Exam: Normal appearance - ENT Exam ENT Exam: Mucous Membranes Moist - Respiratory Exam Respiratory Exam: NORMAL BREATHING PATTERN - GI/Abdominal Exam GI & Abdominal Exam: Distended, Tenderness, Normal Bowel Sounds - Back Exam Additional comments: Dressings clean dry and intact. TAN drains with mild serosang drainage. Output L :135, R:65. Mild global tenderness secondary to surgery. Sensation intact SP/DP /TN. Motor intact EHL/FHL/Gastroc/TA. - Neurological Exam Neurological Exam: Alert, Awake, Oriented x3 Neuro motor strength exam: Left Lower Extremity: 5, Right Lower Extremity: 5 - Psychiatric Exam Psychiatric exam: Normal Affect, Normal Mood - Skin Skin Exam: Normal Color Assessment and Plan (1) Lumbar spondylosis Assessment & Plan: Patient is POD#2 from L4-L5 laminectomy and fusion doing well. -Will leave TAN drains in x2 and monitor drainage and will most likely pull tomorrow. -pain control -PT/OT WBAT, encourage OOB -DVT ppx -Patient's case and plan was discussed in agreement with Dr. Sweet Status: Acute
[2017-05-31] MEDS: Metoprolol Succinate 100 mg XL Tab PO SCH (09:58)
[2017-05-31] MEDS: CYANOCOBALAMIN 500 MCG TAB PO SCH (09:58)
[2017-05-31] MEDS: Pantoprazole 40 mg EC Tab PO SCH (09:59)
[2017-05-31] MEDS: Enoxaparin 40 mg Syringe SC SCH (10:00)
[2017-05-31] MEDS: Nitroglycerin 0.4 mg/hr Top Patch TD SCH (10:10)
--- NOTE | 2017-05-31 11:03 | CP.PCM.PN ---
Subjective - Date & Time of Evaluation Date of Evaluation: 05/30/17 Time of Evaluation: 10:00 - Subjective Subjective: Patient has some episodes of confusion. Has difficulty with urination. Noted more than 80 cc drainage. Objective - Vital Signs/Intake and Output Vital Signs (last 24 hours): Temp Pulse Resp BP Pulse Ox 99.3 F 94 H 18 153/79 H 94 L 05/31/17 08:00 05/31/17 10:10 05/31/17 08:00 05/31/17 10:10 05/31/17 08:00 Intake and Output: 05/31/17 05/31/17 06:59 18:59 Intake Total 1220 Output Total 1250 Balance -30 - Medications Medications: Current Medications Acetaminophen (Tylenol 325mg Tab) 650 mg PO Q4 PRN PRN Reason: Fever 101 degrees fahrenheit Amlodipine Besylate (Norvasc) 5 mg PO DAILY [facility] Last Admin: 05/31/17 09:58 Dose: 5 mg Atorvastatin Calcium (Lipitor) 10 mg PO [facility] Last Admin: 05/30/17 21:17 Dose: 10 mg Cyanocobalamin (Vitamin B12) 500 mcg PO DAILY [facility] Last Admin: 05/31/17 09:58 Dose: 500 mcg Docusate Sodium (Colace) 100 mg PO BID [facility] Last Admin: 05/31/17 09:59 Dose: 100 mg Enoxaparin Sodium (Lovenox) 40 mg SC DAILY [facility] PRN Reason: Protocol Last Admin: 05/31/17 10:00 Dose: 40 mg Home Med (Dutasteride [Avodart]) 0.5 mg PO [facility] Last Admin: 05/30/17 21:17 Dose: 0.5 mg Home Med (Silodosin [Rapaflo]) 4 mg PO HS [facility] Last Admin: 05/30/17 21:17 Dose: 4 mg Cefazolin Sodium 2 gm/ Sodium (Chloride) 100 mls @ 100 mls/hr IVPB Q8H [facility] PRN Reason: Protocol Last Admin: 05/31/17 09:59 Dose: 100 mls/hr Insulin Human Regular (Humulin R) 0 units SC ACHS [facility] PRN Reason: Protocol Last Admin: 05/31/17 06:55 Dose: Not Given Losartan Potassium (Cozaar) 100 mg PO DAILY [facility] Last Admin: 05/31/17 09:59 Dose: 100 mg Metformin HCl (Glucophage) 250 mg PO BIDWM [facility] Last Admin: 05/31/17 09:59 Dose: 250 mg Metoprolol Succinate (Toprol Xl) 100 mg PO DAILY [facility] Last Admin: 05/31/17 09:58 Dose: 100 mg Morphine Sulfate (Morphine) 4 mg IVP Q4 PRN PRN Reason: Pain, severe (8-10) Nitroglycerin (Nitro-Dur 0.4 Mg/Hr Patch) 1 patch TD DAILY [facility] Last Admin: 05/31/17 10:10 Dose: 1 patch Ondansetron HCl (Zofran Inj) 4 mg IVP ONCE PRN PRN Reason: Nausea/Vomiting Oxycodone/Acetaminophen (Percocet 5/325 Mg Tab) 1 tab PO Q4 PRN PRN Reason: Pain, moderate (4-7) Stop: 06/02/17 15:01 Last Admin: 05/31/17 06:59 Dose: 1 tab Pantoprazole Sodium (Protonix Ec Tab) 40 mg PO DAILY [facility] Last Admin: 05/31/17 09:59 Dose: 40 mg Tamsulosin HCl (Flomax) 0.4 mg PO DAILY [facility] Last Admin: 05/31/17 09:59 Dose: 0.4 mg - Labs Labs: 05/31/17 05:00 05/31/17 05:00 PT 12.0 Seconds (9.8-13.1) 05/28/17 14:26 INR 1.1 (0.9-1.2) 05/28/17 14:26 APTT 30.0 Seconds (25.6-37.1) 05/28/17 14:26 - Head Exam Head Exam: NORMAL INSPECTION - Eye Exam Eye Exam: Normal appearance - ENT Exam ENT Exam: Mucous Membranes Moist - Respiratory Exam Respiratory Exam: Clear to Ausculation Bilateral - Cardiovascular Exam Cardiovascular Exam: REGULAR RHYTHM - GI/Abdominal Exam GI & Abdominal Exam: Normal Bowel Sounds Assessment and Plan (1) Lumbar spondylosis Status: Acute (2) Herniated lumbar intervertebral disc Status: Acute (3) Hypertension Status: Acute (4) Prostatism Status: Acute (5) Confusion, postoperative Status: Acute - Assessment and Plan (Free Text) Plan: Cont meds straight cath monitor urine output cont meds Phys therapy
--- NOTE | 2017-05-31 11:07 | CP.PCM.PN ---
Subjective - Date & Time of Evaluation Date of Evaluation: 05/31/17 Time of Evaluation: 11:05 - Subjective Subjective: Patient still has some episodes of confusion last night. Still with difficulty voiding Noted more than 60 cc, Has no fever no chest pain or SOB. Objective - Vital Signs/Intake and Output Vital Signs (last 24 hours): Temp Pulse Resp BP Pulse Ox 99.3 F 94 H 18 153/79 H 94 L 05/31/17 08:00 05/31/17 10:10 05/31/17 08:00 05/31/17 10:10 05/31/17 08:00 Intake and Output: 05/31/17 05/31/17 06:59 18:59 Intake Total 1220 Output Total 1250 Balance -30 - Medications Medications: Current Medications Acetaminophen (Tylenol 325mg Tab) 650 mg PO Q4 PRN PRN Reason: Fever 101 degrees fahrenheit Amlodipine Besylate (Norvasc) 5 mg PO DAILY [facility] Last Admin: 05/31/17 09:58 Dose: 5 mg Atorvastatin Calcium (Lipitor) 10 mg PO HS [facility] Last Admin: 05/30/17 21:17 Dose: 10 mg Cyanocobalamin (Vitamin B12) 500 mcg PO DAILY [facility] Last Admin: 05/31/17 09:58 Dose: 500 mcg Docusate Sodium (Colace) 100 mg PO BID [facility] Last Admin: 05/31/17 09:59 Dose: 100 mg Enoxaparin Sodium (Lovenox) 40 mg SC DAILY [facility] PRN Reason: Protocol Last Admin: 05/31/17 10:00 Dose: 40 mg Home Med (Dutasteride [Avodart]) 0.5 mg PO HS [facility] Last Admin: 05/30/17 21:17 Dose: 0.5 mg Home Med (Silodosin [Rapaflo]) 4 mg PO HS [facility] Last Admin: 05/30/17 21:17 Dose: 4 mg Cefazolin Sodium 2 gm/ Sodium (Chloride) 100 mls @ 100 mls/hr IVPB Q8H [facility] PRN Reason: Protocol Last Admin: 05/31/17 09:59 Dose: 100 mls/hr Insulin Human Regular (Humulin R) 0 units SC ACHS [facility] PRN Reason: Protocol Last Admin: 05/31/17 06:55 Dose: Not Given Losartan Potassium (Cozaar) 100 mg PO DAILY [facility] Last Admin: 05/31/17 09:59 Dose: 100 mg Metformin HCl (Glucophage) 250 mg PO BIDWM [facility] Last Admin: 05/31/17 09:59 Dose: 250 mg Metoprolol Succinate (Toprol Xl) 100 mg PO DAILY [facility] Last Admin: 05/31/17 09:58 Dose: 100 mg Morphine Sulfate (Morphine) 4 mg IVP Q4 PRN PRN Reason: Pain, severe (8-10) Nitroglycerin (Nitro-Dur 0.4 Mg/Hr Patch) 1 patch TD DAILY [facility] Last Admin: 05/31/17 10:10 Dose: 1 patch Ondansetron HCl (Zofran Inj) 4 mg IVP ONCE PRN PRN Reason: Nausea/Vomiting Oxycodone/Acetaminophen (Percocet 5/325 Mg Tab) 1 tab PO Q4 PRN PRN Reason: Pain, moderate (4-7) Stop: 06/02/17 15:01 Last Admin: 05/31/17 06:59 Dose: 1 tab Pantoprazole Sodium (Protonix Ec Tab) 40 mg PO DAILY [facility] Last Admin: 05/31/17 09:59 Dose: 40 mg Tamsulosin HCl (Flomax) 0.4 mg PO DAILY [facility] Last Admin: 05/31/17 09:59 Dose: 0.4 mg - Labs Labs: 05/31/17 05:00 05/31/17 05:00 PT 12.0 Seconds (9.8-13.1) 05/28/17 14:26 INR 1.1 (0.9-1.2) 05/28/17 14:26 APTT 30.0 Seconds (25.6-37.1) 05/28/17 14:26 - Head Exam Head Exam: NORMAL INSPECTION - Eye Exam Eye Exam: Normal appearance - ENT Exam ENT Exam: Mucous Membranes Moist - Respiratory Exam Respiratory Exam: Clear to Ausculation Bilateral - Cardiovascular Exam Cardiovascular Exam: REGULAR RHYTHM - GI/Abdominal Exam GI & Abdominal Exam: Normal Bowel Sounds Assessment and Plan (1) Lumbar spondylosis Status: Acute (2) Herniated lumbar intervertebral disc Status: Acute (3) Hypertension Status: Acute (4) Prostatism Status: Acute (5) Confusion, postoperative Status: Acute - Assessment and Plan (Free Text) Plan: Cont meds resume prostate meds Cont tx phys therapy DC plans in am.
[2017-05-31] MEDS: SILODOSIN 4 MG PO SCH (21:20)
[2017-06-01] MEDS: ceFAZolin 2 GM in Sodium Chloride 0.9% 100 ML IVPB SCH ×3 (00:11→17:20)
[2017-06-01] MEDS: Oxycodone/Acetaminophen 5/325 mg Tab PO PRN (06:17)
[2017-06-01 06:23] LABS: BASO % 0.2 % (0.0-2.0); EOS # 0.1 K/uL (0.0-0.7); EOS % 0.6 % (0.0-4.0); HEMOGLOBIN 11.8 g/dL (12.0-18.0); LYMPH # 1.9 K/uL (1.0-4.3); LYMPH % 14.6 % (20.0-40.0); MEAN CORPUSCULAR HEMOGLOBIN 32.6 pg (27.0-31.0); MEAN PLATELET VOLUME 8.7 fl (7.2-11.7); MONO # 1.7 K/uL (0.0-0.8); MONO % 13.1 % (0.0-10.0); NEUT # 9.4 K/uL (1.8-7.0); NEUT % 71.5 % (50.0-75.0); NRBC % 0.7 % (0.0-0.0); RBC 3.63 Mil/uL (4.40-5.90); RED CELL DISTRIBUTION WIDTH 20.9 % (11.5-14.5); WHITE BLOOD COUNT 13.1 K/uL (4.8-10.8)
[2017-06-01] MEDS: Insulin Regular 100 units/ml SC SCH ×4 (06:53→21:45)
[2017-06-01 07:10] LABS: BLOOD UREA NITROGEN 19 mg/dl (9-20); CALCIUM 8.8 mg/dL (8.4-10.2); GFR AFRICAN-AMERICAN > 60; GFR NON-AFRICAN AMERICAN > 60
[2017-06-01] MEDS: Metoprolol Succinate 100 mg XL Tab PO SCH (10:14)
[2017-06-01] MEDS: Enoxaparin 40 mg Syringe SC SCH (10:14)
[2017-06-01] MEDS: Pantoprazole 40 mg EC Tab PO SCH (10:14)
[2017-06-01] MEDS: CYANOCOBALAMIN 500 MCG TAB PO SCH (10:16)
[2017-06-01] MEDS: Nitroglycerin 0.4 mg/hr Top Patch TD SCH (10:22)
--- NOTE | 2017-06-01 15:56 | CP.PCM.PN ---
Subjective - Date & Time of Evaluation Date of Evaluation: 06/01/17 Time of Evaluation: 15:53 - Subjective Subjective: Still with a lot of drainage more than 600 cc. Still with problems with urinary retention gets straight urinary cath every 6 hours. Objective - Vital Signs/Intake and Output Vital Signs (last 24 hours): Temp Pulse Resp BP Pulse Ox 98.7 F 88 18 136/78 95 06/01/17 12:19 06/01/17 12:19 06/01/17 12:19 06/01/17 12:19 06/01/17 12:19 Intake and Output: 06/01/17 06/01/17 06:59 18:59 Intake Total 980 Output Total 1860 Balance -880 - Medications Medications: Current Medications Acetaminophen (Tylenol 325mg Tab) 650 mg PO Q4 PRN PRN Reason: Fever 101 degrees fahrenheit Amlodipine Besylate (Norvasc) 5 mg PO DAILY [facility] Last Admin: 06/01/17 10:15 Dose: 5 mg Atorvastatin Calcium (Lipitor) 10 mg PO [facility] Last Admin: 05/31/17 21:21 Dose: 10 mg Cyanocobalamin (Vitamin B12) 500 mcg PO DAILY [facility] Last Admin: 06/01/17 10:16 Dose: 500 mcg Docusate Sodium (Colace) 100 mg PO BID [facility] Last Admin: 06/01/17 10:14 Dose: 100 mg Enoxaparin Sodium (Lovenox) 40 mg SC DAILY [facility] PRN Reason: Protocol Last Admin: 06/01/17 10:14 Dose: 40 mg Home Med (Dutasteride [Avodart]) 0.5 mg PO HS [facility] Last Admin: 05/31/17 21:20 Dose: 0.5 mg Home Med (Silodosin [Rapaflo]) 4 mg PO HS [facility] Last Admin: 05/31/17 21:20 Dose: 4 mg Cefazolin Sodium 2 gm/ Sodium (Chloride) 100 mls @ 100 mls/hr IVPB Q8H [facility] PRN Reason: Protocol Last Admin: 06/01/17 10:16 Dose: 100 mls/hr Insulin Human Regular (Humulin R) 0 units SC ACHS [facility] PRN Reason: Protocol Last Admin: 06/01/17 12:24 Dose: Not Given Losartan Potassium (Cozaar) 100 mg PO DAILY [facility] Last Admin: 06/01/17 10:15 Dose: 100 mg Metformin HCl (Glucophage) 250 mg PO BIDWM [facility] Last Admin: 06/01/17 10:15 Dose: 250 mg Metoprolol Succinate (Toprol Xl) 100 mg PO DAILY [facility] Last Admin: 06/01/17 10:14 Dose: 100 mg Morphine Sulfate (Morphine) 4 mg IVP Q4 PRN PRN Reason: Pain, severe (8-10) Nitroglycerin (Nitro-Dur 0.4 Mg/Hr Patch) 1 patch TD DAILY [facility] Last Admin: 06/01/17 10:22 Dose: 1 patch Ondansetron HCl (Zofran Inj) 4 mg IVP ONCE PRN PRN Reason: Nausea/Vomiting Oxycodone/Acetaminophen (Percocet 5/325 Mg Tab) 1 tab PO Q4 PRN PRN Reason: Pain, moderate (4-7) Stop: 06/02/17 15:01 Last Admin: 06/01/17 06:17 Dose: 1 tab Pantoprazole Sodium (Protonix Ec Tab) 40 mg PO DAILY [facility] Last Admin: 06/01/17 10:14 Dose: 40 mg Tamsulosin HCl (Flomax) 0.4 mg PO DAILY [facility] Last Admin: 06/01/17 12:24 Dose: Not Given - Labs Labs: 06/01/17 05:10 06/01/17 05:10 PT 12.0 Seconds (9.8-13.1) 05/28/17 14:26 INR 1.1 (0.9-1.2) 05/28/17 14:26 APTT 30.0 Seconds (25.6-37.1) 05/28/17 14:26 - Head Exam Head Exam: NORMAL INSPECTION - Eye Exam Eye Exam: Normal appearance - ENT Exam ENT Exam: Mucous Membranes Moist - Respiratory Exam Respiratory Exam: Clear to Ausculation Bilateral - Cardiovascular Exam Cardiovascular Exam: REGULAR RHYTHM - GI/Abdominal Exam GI & Abdominal Exam: Normal Bowel Sounds Assessment and Plan (1) Lumbar spondylosis Status: Acute (2) Herniated lumbar intervertebral disc Status: Acute (3) Hypertension Status: Acute (4) Prostatism Status: Acute (5) Confusion, postoperative Status: Acute (6) Postoperative urinary retention Status: Acute - Assessment and Plan (Free Text) Plan: Cont meds cont straight cath Urology eval Dr P[place] cont meds.
[2017-06-01] MEDS: SILODOSIN 4 MG PO SCH (21:34)
[2017-06-02] MEDS: ceFAZolin 2 GM in Sodium Chloride 0.9% 100 ML IVPB SCH ×3 (01:00→17:45)
[2017-06-02] MEDS: Insulin Regular 100 units/ml SC SCH ×4 (08:43→21:46)
[2017-06-02] MEDS: Metoprolol Succinate 100 mg XL Tab PO SCH (10:08)
[2017-06-02] MEDS: CYANOCOBALAMIN 500 MCG TAB PO SCH (10:09)
[2017-06-02] MEDS: Pantoprazole 40 mg EC Tab PO SCH (10:09)
[2017-06-02] MEDS: Enoxaparin 40 mg Syringe SC SCH (10:09)
[2017-06-02] MEDS: Nitroglycerin 0.4 mg/hr Top Patch TD SCH (10:17)
--- NOTE | 2017-06-02 12:38 | CP.PCM.PN ---
Subjective - Date & Time of Evaluation Date of Evaluation: 06/02/17 Time of Evaluation: 12:38 - Subjective Subjective: Patient continues to have problems with urinary retention. Noted significant drainage. Has no fever. Has no pain on the surgical site. Objective - Vital Signs/Intake and Output Vital Signs (last 24 hours): Temp Pulse Resp BP Pulse Ox 99.3 F 88 18 125/77 95 06/02/17 08:38 06/02/17 10:17 06/02/17 08:38 06/02/17 10:17 06/02/17 08:38 Intake and Output: 06/02/17 06/02/17 06:59 18:59 Intake Total 900 Output Total 530 Balance 370 - Medications Medications: Current Medications Acetaminophen (Tylenol 325mg Tab) 650 mg PO Q4 PRN PRN Reason: Fever 101 degrees fahrenheit Amlodipine Besylate (Norvasc) 5 mg PO DAILY [facility] Last Admin: 06/02/17 10:08 Dose: 5 mg Atorvastatin Calcium (Lipitor) 10 mg PO [facility] Last Admin: 06/01/17 21:34 Dose: 10 mg Cyanocobalamin (Vitamin B12) 500 mcg PO DAILY [facility] Last Admin: 06/02/17 10:09 Dose: 500 mcg Docusate Sodium (Colace) 100 mg PO BID [facility] Last Admin: 06/02/17 10:07 Dose: 100 mg Home Med (Dutasteride [Avodart]) 0.5 mg PO HS [facility] Last Admin: 06/01/17 21:35 Dose: 0.5 mg Home Med (Silodosin [Rapaflo]) 4 mg PO [facility] Last Admin: 06/01/17 21:34 Dose: 4 mg Cefazolin Sodium 2 gm/ Sodium (Chloride) 100 mls @ 100 mls/hr IVPB Q8H [facility] PRN Reason: Protocol Last Admin: 06/02/17 10:09 Dose: 100 mls/hr Insulin Human Regular (Humulin R) 0 units SC ACHS [facility] PRN Reason: Protocol Last Admin: 06/02/17 08:43 Dose: Not Given Losartan Potassium (Cozaar) 100 mg PO DAILY [facility] Last Admin: 06/02/17 10:08 Dose: 100 mg Metformin HCl (Glucophage) 250 mg PO BIDWM [facility] Last Admin: 06/02/17 10:08 Dose: 250 mg Metoprolol Succinate (Toprol Xl) 100 mg PO DAILY [facility] Last Admin: 06/02/17 10:08 Dose: 100 mg Morphine Sulfate (Morphine) 4 mg IVP Q4 PRN PRN Reason: Pain, severe (8-10) Nitroglycerin (Nitro-Dur 0.4 Mg/Hr Patch) 1 patch TD DAILY [facility] Last Admin: 06/02/17 10:17 Dose: 1 patch Ondansetron HCl (Zofran Inj) 4 mg IVP ONCE PRN PRN Reason: Nausea/Vomiting Oxycodone/Acetaminophen (Percocet 5/325 Mg Tab) 1 tab PO Q4 PRN PRN Reason: Pain, moderate (4-7) Stop: 06/02/17 15:01 Last Admin: 06/01/17 06:17 Dose: 1 tab Pantoprazole Sodium (Protonix Ec Tab) 40 mg PO DAILY [facility] Last Admin: 06/02/17 10:09 Dose: 40 mg Tamsulosin HCl (Flomax) 0.4 mg PO DAILY [facility] Last Admin: 06/02/17 10:10 Dose: Not Given - Labs Labs: 06/01/17 05:10 06/01/17 05:10 PT 12.0 Seconds (9.8-13.1) 05/28/17 14:26 INR 1.1 (0.9-1.2) 05/28/17 14:26 APTT 30.0 Seconds (25.6-37.1) 05/28/17 14:26 - Head Exam Head Exam: NORMAL INSPECTION - Eye Exam Eye Exam: Normal appearance - ENT Exam ENT Exam: Mucous Membranes Moist - Respiratory Exam Respiratory Exam: Clear to Ausculation Bilateral - Cardiovascular Exam Cardiovascular Exam: REGULAR RHYTHM - GI/Abdominal Exam GI & Abdominal Exam: Normal Bowel Sounds Assessment and Plan (1) Lumbar spondylosis Status: Acute (2) Herniated lumbar intervertebral disc Status: Acute (3) Hypertension Status: Acute (4) Prostatism Status: Acute (5) Confusion, postoperative Status: Acute (6) Postoperative urinary retention Status: Acute - Assessment and Plan (Free Text) Plan: Cont meds straight cath if continues to have issues will start Detrol 4 mg Urology eval.
[2017-06-02] MEDS: Oxycodone/Acetaminophen 5/325 mg Tab PO PRN (13:39)
[2017-06-02] MEDS: SILODOSIN 4 MG PO SCH (21:46)
[2017-06-03] MEDS: ceFAZolin 2 GM in Sodium Chloride 0.9% 100 ML IVPB SCH ×2 (00:42→09:05)
[2017-06-03] MEDS: Insulin Regular 100 units/ml SC SCH ×3 (06:41→15:59)
[2017-06-03] MEDS: Pantoprazole 40 mg EC Tab PO SCH (09:03)
[2017-06-03] MEDS: Metoprolol Succinate 100 mg XL Tab PO SCH (09:03)
[2017-06-03] MEDS: CYANOCOBALAMIN 500 MCG TAB PO SCH (09:04)
[2017-06-03] MEDS: Nitroglycerin 0.4 mg/hr Top Patch TD SCH (09:10)
[2017-06-03 10:12] LABS: HEMOGLOBIN 11.9 g/dL (12.0-18.0); MEAN CELL VOLUME 98.4 fl (80.0-94.0); MEAN CORPUSCULAR HEMOGLOBIN 32.7 pg (27.0-31.0); MEAN CORPUSCULAR HGB CONC 33.3 g/dL (33.0-37.0); RBC 3.63 Mil/uL (4.40-5.90); RED CELL DISTRIBUTION WIDTH 20.7 % (11.5-14.5); WHITE BLOOD COUNT 8.8 K/uL (4.8-10.8)
[2017-06-03 10:42] LABS: BLOOD UREA NITROGEN 10 mg/dl (9-20); CALCIUM 8.9 mg/dL (8.4-10.2); GFR AFRICAN-AMERICAN > 60; GFR NON-AFRICAN AMERICAN > 60
--- NOTE | 2017-06-03 10:51 | CP.PCM.PN ---
Subjective - Date & Time of Evaluation Date of Evaluation: 06/03/17 Time of Evaluation: 10:50 - Subjective Subjective: Patient is now on boyd cath H\urine looks clear Noted minimal drainage Has no fever Has no chest pain o SOB. Objective - Vital Signs/Intake and Output Vital Signs (last 24 hours): Temp Pulse Resp BP Pulse Ox 98.8 F 79 18 134/69 94 L 06/03/17 09:00 06/03/17 09:10 06/03/17 09:00 06/03/17 09:10 06/03/17 09:00 Intake and Output: 06/03/17 06/03/17 06:59 18:59 Intake Total 340 Output Total 1325 Balance -985 - Medications Medications: Current Medications Acetaminophen (Tylenol 325mg Tab) 650 mg PO Q4 PRN PRN Reason: Fever 101 degrees fahrenheit Amlodipine Besylate (Norvasc) 5 mg PO DAILY [facility] Last Admin: 06/03/17 09:05 Dose: 5 mg Atorvastatin Calcium (Lipitor) 10 mg PO [facility] Last Admin: 06/02/17 21:46 Dose: 10 mg Cyanocobalamin (Vitamin B12) 500 mcg PO DAILY [facility] Last Admin: 06/03/17 09:04 Dose: 500 mcg Docusate Sodium (Colace) 100 mg PO BID [facility] Last Admin: 06/03/17 09:04 Dose: 100 mg Home Med (Dutasteride [Avodart]) 0.5 mg PO HS [facility] Last Admin: 06/02/17 21:46 Dose: Not Given Home Med (Silodosin [Rapaflo]) 4 mg PO [facility] Last Admin: 06/02/17 21:46 Dose: Not Given Cefazolin Sodium 2 gm/ Sodium (Chloride) 100 mls @ 100 mls/hr IVPB Q8H [facility] PRN Reason: Protocol Last Admin: 06/03/17 09:05 Dose: 100 mls/hr Insulin Human Regular (Humulin R) 0 units SC ACHS [facility] PRN Reason: Protocol Last Admin: 06/03/17 06:41 Dose: Not Given Losartan Potassium (Cozaar) 100 mg PO DAILY [facility] Last Admin: 06/03/17 09:04 Dose: 100 mg Metformin HCl (Glucophage) 250 mg PO BIDWM [facility] Last Admin: 06/03/17 09:03 Dose: 250 mg Metoprolol Succinate (Toprol Xl) 100 mg PO DAILY [facility] Last Admin: 06/03/17 09:03 Dose: 100 mg Morphine Sulfate (Morphine) 4 mg IVP Q4 PRN PRN Reason: Pain, severe (8-10) Nitroglycerin (Nitro-Dur 0.4 Mg/Hr Patch) 1 patch TD DAILY [facility] Last Admin: 06/03/17 09:10 Dose: 1 patch Ondansetron HCl (Zofran Inj) 4 mg IVP ONCE PRN PRN Reason: Nausea/Vomiting Pantoprazole Sodium (Protonix Ec Tab) 40 mg PO DAILY [facility] Last Admin: 06/03/17 09:03 Dose: 40 mg - Labs Labs: 06/03/17 09:50 06/03/17 09:50 PT 12.0 Seconds (9.8-13.1) 05/28/17 14:26 INR 1.1 (0.9-1.2) 05/28/17 14:26 APTT 30.0 Seconds (25.6-37.1) 05/28/17 14:26 - Head Exam Head Exam: NORMAL INSPECTION - Eye Exam Eye Exam: Normal appearance - ENT Exam ENT Exam: Mucous Membranes Moist - Respiratory Exam Respiratory Exam: Clear to Ausculation Bilateral - Cardiovascular Exam Cardiovascular Exam: REGULAR RHYTHM - GI/Abdominal Exam GI & Abdominal Exam: Normal Bowel Sounds - Neurological Exam Neurological Exam: Awake, Oriented x3 Assessment and Plan (1) Lumbar spondylosis Status: Acute (2) Herniated lumbar intervertebral disc Status: Acute (3) Hypertension Status: Acute (4) Prostatism Status: Acute (5) Confusion, postoperative Status: Acute (6) Postoperative urinary retention Status: Acute - Assessment and Plan (Free Text) Plan: Cont meds Con tx Remove drain today follow up with Urologist ian Joshi
[2017-06-03] MEDS ORDERED: Potassium Chloride 20 mEq ER Tab PO ONE (12:01)
--- NOTE | 2017-06-03 13:55 | CP.PCM.PCO ---
Assessment & Plan - Assessment and Plan (Free Text) Assessment: pt. sitting oob to chair- denies sob, cp, fever, chills, or weakness, numbness tingling b/l TAN minimal output TAN drains b/l removed, tip intact, site c/d/i cont. abd binder cont. PT/OT
[2017-06-03] MEDS ORDERED: Chlorhexidine Gluconate 1 APPL/PKT TP ONE (14:00)
--- NOTE | 2017-06-03 15:34 | CP.PCM.PN ---
Subjective - Date & Time of Evaluation Date of Evaluation: 06/03/17 Time of Evaluation: 03:00 - Subjective Subjective: Patient was seen and examined OOB to chair comfortable. Pain is well controlled. Tolerating diet. Continues to have difficulty urinating and boyd was placed. No new complaints. Objective - Vital Signs/Intake and Output Vital Signs (last 24 hours): Temp Pulse Resp BP Pulse Ox 99.3 F 90 18 117/64 97 06/03/17 13:00 06/03/17 14:00 06/03/17 13:00 06/03/17 13:00 06/03/17 14:00 Intake and Output: 06/03/17 06/03/17 06:59 18:59 Intake Total 340 Output Total 1325 Balance -985 - Medications Medications: Current Medications Acetaminophen (Tylenol 325mg Tab) 650 mg PO Q4 PRN PRN Reason: Fever 101 degrees fahrenheit Amlodipine Besylate (Norvasc) 5 mg PO DAILY [facility] Last Admin: 06/03/17 09:05 Dose: 5 mg Atorvastatin Calcium (Lipitor) [address] [facility] Last Admin: 06/02/17 21:46 Dose: 10 mg Cyanocobalamin (Vitamin B12) 500 mcg PO DAILY [facility] Last Admin: 06/03/17 09:04 Dose: 500 mcg Docusate Sodium (Colace) 100 mg PO BID [facility] Last Admin: 06/03/17 09:04 Dose: 100 mg Home Med (Dutasteride [Avodart]) 0.5 mg PO HS [facility] Last Admin: 06/02/17 21:46 Dose: Not Given Home Med (Silodosin [Rapaflo]) [address] [facility] Last Admin: 06/02/17 21:46 Dose: Not Given Cefazolin Sodium 2 gm/ Sodium (Chloride) 100 mls @ 100 mls/hr IVPB Q8H [facility] PRN Reason: Protocol Last Admin: 06/03/17 09:05 Dose: 100 mls/hr Insulin Human Regular (Humulin R) 0 units SC ACHS [facility] PRN Reason: Protocol Last Admin: 06/03/17 12:17 Dose: Not Given Losartan Potassium (Cozaar) 100 mg PO DAILY [facility] Last Admin: 06/03/17 09:04 Dose: 100 mg Metformin HCl (Glucophage) 250 mg PO BIDWM [facility] Last Admin: 06/03/17 09:03 Dose: 250 mg Metoprolol Succinate (Toprol Xl) 100 mg PO DAILY [facility] Last Admin: 06/03/17 09:03 Dose: 100 mg Nitrofurantoin Macrocrystals (Macrobid) 100 mg PO Q12 [facility] Nitroglycerin (Nitro-Dur 0.4 Mg/Hr Patch) 1 patch TD DAILY [facility] Last Admin: 06/03/17 09:10 Dose: 1 patch Ondansetron HCl (Zofran Inj) 4 mg IVP ONCE PRN PRN Reason: Nausea/Vomiting Pantoprazole Sodium (Protonix Ec Tab) 40 mg PO DAILY [facility] Last Admin: 06/03/17 09:03 Dose: 40 mg Tramadol HCl (Ultram) 50 mg PO Q6 PRN PRN Reason: Pain, moderate (4-7) Last Admin: 06/03/17 12:00 Dose: 50 mg - Labs Labs: 06/03/17 09:50 06/03/17 09:50 PT 12.0 Seconds (9.8-13.1) 05/28/17 14:26 INR 1.1 (0.9-1.2) 05/28/17 14:26 APTT 30.0 Seconds (25.6-37.1) 05/28/17 14:26 - Constitutional Appears: No Acute Distress - ENT Exam ENT Exam: Mucous Membranes Moist - Respiratory Exam Respiratory Exam: NORMAL BREATHING PATTERN - Back Exam Additional comments: TAN drains x 2 removed. Dressings clean, dry and intact. Gross NVI distally. Motor intact distally. - Neurological Exam Neurological Exam: Alert, Awake, Oriented x3 Neuro motor strength exam: Left Lower Extremity: 5, Right Lower Extremity: 5 - Psychiatric Exam Psychiatric exam: Normal Affect, Normal Mood Assessment and Plan (1) Lumbar spondylosis Assessment & Plan: Patient is POD#5 from L4-L5 laminectomy and fusion doing well. -TAN drains removed. -pain control -PT/OT WBAT, encourage OOB -DVT ppx -Patient's case and plan was discussed in agreement with Dr. Sweet Status: Acute
[2017-06-03 15:59] VITALS: O2SAT 96
[2017-06-03 20:13] VITALS: BP 116/69; PULSE 78; RESP 18; TEMP 98.7
--- NOTE | 2017-06-04 07:07 | CP.PCM.DIS ---
Provider - Provider Date of Admission: 05/28/17 14:35 Attending physician: Toro Mcdaniel MD Time Spent in preparation of Discharge (in minutes): 30 Diagnosis - Discharge Diagnosis (1) Lumbar spondylosis Status: Acute (2) Herniated lumbar intervertebral disc Status: Acute (3) Hypertension Status: Acute (4) Prostatism Status: Acute (5) Confusion, postoperative Status: Acute (6) Postoperative urinary retention Status: Acute Hospital Course - Lab Results Lab Results: Micro Results 05/30/17 16:25 Blood-Venous Blood Culture - Preliminary NO GROWTH AFTER 4 DAYS 05/30/17 14:00 Urine,Catheterized Urine Culture - Final No Growth (<1,000 CFU/ML) Most Recent Lab Values WBC 8.8 K/uL (4.8-10.8) 06/03/17 09:50 RBC 3.63 Mil/uL (4.40-5.90) L 06/03/17 09:50 Hgb 11.9 g/dL (12.0-18.0) L 06/03/17 09:50 Hct 35.7 % (35.0-51.0) 06/03/17 09:50 MCV 98.4 fl (80.0-94.0) H 06/03/17 09:50 MCH 32.7 pg (27.0-31.0) H 06/03/17 09:50 MCHC 33.3 g/dL (33.0-37.0) 06/03/17 09:50 RDW 20.7 % (11.5-14.5) H 06/03/17 09:50 Plt Count 387 K/uL (130-400) D 06/03/17 09:50 MPV 8.7 fl (7.2-11.7) 06/01/17 05:10 Neut % (Auto) 71.5 % (50.0-75.0) 06/01/17 05:10 Lymph % (Auto) 14.6 % (20.0-40.0) L 06/01/17 05:10 [place] % (Auto) 13.1 % (0.0-10.0) H 06/01/17 05:10 Eos % (Auto) 0.6 % (0.0-4.0) 06/01/17 05:10 Baso % (Auto) 0.2 % (0.0-2.0) 06/01/17 05:10 Neut # (Auto) 9.4 K/uL (1.8-7.0) H 06/01/17 05:10 Lymph # (Auto) 1.9 K/uL (1.0-4.3) 06/01/17 05:10 [place] # (Auto) 1.7 K/uL (0.0-0.8) H 06/01/17 05:10 Eos # (Auto) 0.1 K/uL (0.0-0.7) 06/01/17 05:10 Baso # (Auto) 0.0 K/uL (0.0-0.2) 06/01/17 05:10 PT 12.0 Seconds (9.8-13.1) 05/28/17 14:26 INR 1.1 (0.9-1.2) 05/28/17 14:26 APTT 30.0 Seconds (25.6-37.1) 05/28/17 14:26 Sodium 145 mmol/l (132-148) 06/03/17 09:50 Potassium 3.5 MMOL/L (3.6-5.0) L 06/03/17 09:50 Chloride 100 mmol/L (98-107) 06/03/17 09:50 Carbon Dioxide 31 mmol/L (22-30) H 06/03/17 09:50 Anion Gap 18 (10-20) 06/03/17 09:50 BUN 10 mg/dl (9-20) 06/03/17 09:50 Creatinine 0.7 mg/dl (0.8-1.5) L 06/03/17 09:50 Est GFR ( Amer) > 60 06/03/17 09:50 Est GFR (Non-Af Amer) > 60 06/03/17 09:50 POC Glucose (mg/dL) 108 mg/dL (65-110) 06/03/17 15:51 Random Glucose 130 mg/dL (75-110) H 06/03/17 09:50 Calcium 8.9 mg/dL (8.4-10.2) 06/03/17 09:50 Total Bilirubin 0.8 mg/dl (0.2-1.3) 05/28/17 14:26 AST 34 U/L (17-59) 05/28/17 14:26 ALT 31 U/L (21-72) 05/28/17 14:26 Alkaline Phosphatase 75 U/L (38-126) 05/28/17 14:26 Total Protein 8.1 G/DL (6.3-8.2) 05/28/17 14:26 Albumin 4.5 g/dL (3.5-5.0) 05/28/17 14:26 Globulin 3.6 gm/dL (2.2-3.9) 05/28/17 14:26 Albumin/Globulin Ratio 1.3 (1.0-2.1) 05/28/17 14:26 - Hospital Course Hospital Course: This is a 72 y/o male admitted for lumbar laminectomy. Post op period was uncomplicated except for urinary retention despite medications. He was placed on meds for BPH and was catheterized regularly. There was significant drainage which subsided in 3 days and drain was removed. He was placed in boyd cath and seen by urology. He was started on Phys therapy and advised to continue PT at TCU . He was discharged in stable condition. Discharge Exam - Head Exam Head Exam: NORMAL INSPECTION - Eye Exam Eye Exam: Normal appearance - Respiratory Exam Respiratory Exam: Clear to PA & Lateral, NORMAL BREATHING PATTERN - Cardiovascular Exam Cardiovascular Exam: REGULAR RHYTHM - GI/Abdominal Exam GI & Abdominal Exam: Normal Bowel Sounds - Neurological Exam Neurological exam: CN II-XII Intact, Normal Gait - Psychiatric Exam Psychiatric exam: Normal Mood Discharge Plan - Follow Up Plan Condition: GOOD Disposition: TRANSF TO SNF Additional Instructions: will continue boyd cath and get urology at TCU cont all meds in TCU
== END 2017-06-03 20:00 | DRG 460 ==
LOC: H.ER 12:25 → H.ERHOLD 14:35 → H.MEDSURG1 16:45 → H.TEL 05-29 13:06
PROVIDERS: ADMIT Family Medicine; ATTEND Family Medicine
PROC: 0SG00K1 Fusion of Lumbar Vertebral Joint with Nonautologous Tissue Substitute, Posterior Approach, Posterior Column, Open Approach (ICD-10-PCS; principal; 2017-05-29 07:45)
DX: M47.816 Spondylosis without myelopathy or radiculopathy, lumbar region (principal); E11.9 Type 2 diabetes mellitus without complications; M51.26 Other intervertebral disc displacement, lumbar region; G89.29 Other chronic pain; N40.1 Benign prostatic hyperplasia with lower urinary tract symptoms; R33.8 Other retention of urine; I10 Essential (primary) hypertension; E78.5 Hyperlipidemia, unspecified; R41.0 Disorientation, unspecified; N99.89 Other postprocedural complications and disorders of genitourinary system; Z91.011 Allergy to milk products

== ENCOUNTER 2017-06-03 17:16 | Inpatient (IN) | payer MEDICARE ==
[2017-06-03 20:45] VITALS: BMI 28.9
[2017-06-03] MEDS: Ergocalciferol 50,000 Intl Units Cap PO SCH (22:34)
[2017-06-03] MEDS: SILODOSIN 4 MG PO SCH (22:42)
[2017-06-04] MEDS: Nitroglycerin 0.4 mg/hr Top Patch TD SCH (08:22)
[2017-06-04] MEDS: CYANOCOBALAMIN 500 MCG TAB PO SCH (08:22)
[2017-06-04] MEDS: Pantoprazole 40 mg EC Tab PO SCH (08:22)
[2017-06-04] MEDS: Metoprolol Succinate 100 mg XL Tab PO SCH (08:22)
--- NOTE | 2017-06-04 11:27 | CP.PCM.HP ---
<Luis MFamilia - Last Filed: 06/04/17 14:05> History of Present Illness - History of Present Illness History of Present Illness: 72 y/o M s/p Lumbar laminectomy was admitted to TCU for PT/OT. During his short hosp admission patient was also found to have a UTI and is being treated with Macrobid. Patient has Hx of BPH and had episode of urinary retention after Sx that resolved. Today patient is in not acute distress, pain is controlled and he will be evaluated for PT services and Urology for BPH/Urinary retention. Present on Admission - Present on Admission Any Indicators Present on Admission: No Review of Systems - Review of Systems All systems: reviewed and no additional remarkable complaints except - Genitourinary Genitourinary: Voiding Freq/Small Amts - Musculoskeletal Musculoskeletal: Back Pain Past Patient History - Past Medical History & Family History Past Medical History?: Yes - Past Social History Smoking Status: Former Smoker - CARDIAC Hx Hypertension: Yes - PULMONARY Hx Respiratory Disorders: No - NEUROLOGICAL Hx Neurological Disorder: No - HEENT Hx HEENT Problems: No - RENAL Hx Chronic Kidney Disease: No - ENDOCRINE/METABOLIC Hx Diabetes Mellitus Type 2: Yes - HEMATOLOGICAL/ONCOLOGICAL Hx AIDS: No Hx Human Immunodeficiency Virus (HIV): No - INTEGUMENTARY Hx Dermatological Problems: No - MUSCULOSKELETAL/RHEUMATOLOGICAL Hx Falls: No Hx Herniated Disk: Yes - GASTROINTESTINAL Hx Gastrointestinal Disorders: No - GENITOURINARY/GYNECOLOGICAL Hx Prostate Problems: Yes - PSYCHIATRIC Hx Substance Use: No - SURGICAL HISTORY Other/Comment: Hypospadias and Inguinal Hernia - ANESTHESIA Hx Anesthesia: Yes Hx Anesthesia Reactions: No Meds Allergies/Adverse Reactions: Allergies Allergy/AdvReac Type Severity Reaction Status Date / Time lactose Allergy DIARRHEA Verified 05/28/17 17:02 Physical Exam - Constitutional Appears: Non-toxic, No Acute Distress - Eye Exam Eye Exam: EOMI, PERRL - ENT Exam ENT Exam: Mucous Membranes Moist - Respiratory Exam Respiratory Exam: Clear to Auscultation Bilateral, NORMAL BREATHING PATTERN. absent: Decreased Breath Sounds, Rales, Wheezes - Cardiovascular Exam Cardiovascular Exam: REGULAR RHYTHM, RRR, +S1, +S2. absent: Gallop - GI/Abdominal Exam GI & Abdominal Exam: Normal Bowel Sounds, Soft. absent: Tenderness - Back Exam Back exam: absent: CVA tenderness (L), CVA tenderness (R) - Neurological Exam Neurological exam: Alert, Oriented x3 - Psychiatric Exam Psychiatric exam: Normal Affect, Normal Mood - Skin Skin Exam: Normal Color, Warm Results - Vital Signs Recent Vital Signs: Last Vital Signs Temp 98.4 F 06/04/17 07:42 Pulse 81 06/04/17 09:25 Resp 20 06/04/17 07:42 BP 118/64 06/04/17 09:25 Pulse Ox 98 06/04/17 09:25 - Labs Labs: Laboratory Results - last 24 hr 06/03/17 06/04/17 06/04/17 21:35 05:31 10:51 POC Glucose (mg/dL) 113 H 105 113 H Assessment & Plan - Assessment and Plan (Free Text) Assessment: S/P Lumbar laminectomy BPH UTI C/W PO Abx C/W PT/OT C/W Current plan Supportive care/pain control <Toro Mcdaniel - Last Filed: 06/11/17 07:13> Results - Vital Signs Recent Vital Signs: Last Vital Signs Temp 98.2 F 06/10/17 20:06 Pulse 85 06/10/17 20:06 Resp 20 06/10/17 20:06 BP 99/62 L 06/10/17 20:06 Pulse Ox 99 06/10/17 20:06 - Labs Result Diagrams: 06/05/17 05:45 06/05/17 05:45 Labs: Laboratory Results - last 24 hr 06/10/17 06/10/17 06/10/17 11:04 16:40 20:33 POC Glucose (mg/dL) 93 97 115 H 06/11/17 06:19 POC Glucose (mg/dL) 91 Assessment & Plan - Assessment and Plan (Free Text) Plan: I was present during evaluation and discussed with Dr Asencio re plans of care and tx Toro Mcdaniel M.D.
[2017-06-04] MEDS: NIACIN 750 MG PO SCH (21:51)
[2017-06-04] MEDS: SILODOSIN 4 MG PO SCH (21:59)
[2017-06-05 06:49] LABS: BASO % 0.4 % (0.0-2.0); EOS # 0.3 K/uL (0.0-0.7); EOS % 2.5 % (0.0-4.0); HEMOGLOBIN 10.8 g/dL (12.0-18.0); LYMPH # 1.8 K/uL (1.0-4.3); LYMPH % 17.6 % (20.0-40.0); MEAN CELL VOLUME 98.2 fl (80.0-94.0); MEAN CORPUSCULAR HEMOGLOBIN 33.4 pg (27.0-31.0); MEAN PLATELET VOLUME 7.9 fl (7.2-11.7); MONO # 1.5 K/uL (0.0-0.8); MONO % 15.4 % (0.0-10.0); NEUT # 6.4 K/uL (1.8-7.0); NEUT % 64.1 % (50.0-75.0); NRBC % 0.9 % (0.0-0.0); RBC 3.22 Mil/uL (4.40-5.90); RED CELL DISTRIBUTION WIDTH 20.4 % (11.5-14.5)
[2017-06-05 06:57] LABS: BLOOD UREA NITROGEN 11 mg/dl (9-20); CALCIUM 8.9 mg/dL (8.4-10.2); GFR AFRICAN-AMERICAN > 60; GFR NON-AFRICAN AMERICAN > 60
[2017-06-05] MEDS: Enoxaparin 40 mg Syringe SC SCH (08:39)
[2017-06-05] MEDS: Pantoprazole 40 mg EC Tab PO SCH (10:00)
[2017-06-05] MEDS: Nitroglycerin 0.4 mg/hr Top Patch TD SCH (10:00)
[2017-06-05] MEDS: CYANOCOBALAMIN 500 MCG TAB PO SCH (10:00)
[2017-06-05] MEDS: Metoprolol Succinate 100 mg XL Tab PO SCH (10:00)
--- NOTE | 2017-06-05 12:29 | CP.PCM.CON ---
History of Present Illness - History of Present Illness History of Present Illness: Dr Munguia PMR consultation on Christiano Bear, born 1945 who has been admitted to [facility] following a lumbar laminectomy 05/29/17. He is POD #7 and notes significant improvement in radicular symptoms. He only has minor lumbar pain at this point. He hasn't taken any pain meds today and only one prn yesterday. No bowel or bladder complications. No fever. Review of Systems - Constitutional Constitutional: absent: Anorexia, Chills, Daytime Sleepiness - EENT Eyes: absent: Change in Vision Ears: absent: Ear Discharge Nose/Mouth/Throat: absent: Nasal Congestion - Cardiovascular Cardiovascular: absent: Chest Pain - Respiratory Respiratory: absent: Dyspnea - Gastrointestinal Gastrointestinal: absent: Belching, Constipation - Musculoskeletal Musculoskeletal: absent: Muscle Weakness - Integumentary Integumentary: Other (surgical incision) - Neurological Neurological: absent: Abnormal Movements, Numbness Past Patient History - Past Medical History & Family History Past Medical History?: Yes - Past Social History Smoking Status: Former Smoker Alcohol: > 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) Drugs: Denies Home Situation {Lives}: With Family (elevator) - CARDIAC Hx Hypertension: Yes - PULMONARY Hx Respiratory Disorders: No - NEUROLOGICAL Hx Neurological Disorder: No - HEENT Hx HEENT Problems: No - RENAL Hx Chronic Kidney Disease: No - ENDOCRINE/METABOLIC Hx Diabetes Mellitus Type 2: Yes - HEMATOLOGICAL/ONCOLOGICAL Hx AIDS: No Hx Human Immunodeficiency Virus (HIV): No - INTEGUMENTARY Hx Dermatological Problems: No - MUSCULOSKELETAL/RHEUMATOLOGICAL Hx Falls: No Hx Herniated Disk: Yes - GASTROINTESTINAL Hx Gastrointestinal Disorders: No - GENITOURINARY/GYNECOLOGICAL Hx Prostate Problems: Yes - PSYCHIATRIC Hx Substance Use: No - SURGICAL HISTORY Other/Comment: Hypospadias and Inguinal Hernia - ANESTHESIA Hx Anesthesia: Yes Hx Anesthesia Reactions: No Meds Allergies/Adverse Reactions: Allergies Allergy/AdvReac Type Severity Reaction Status Date / Time lactose Allergy DIARRHEA Verified 05/28/17 17:02 - Medications Medications: Current Medications Acetaminophen (Tylenol 325mg Tab) 650 mg PO Q4 PRN PRN Reason: for temp 101 Acetaminophen (Tylenol 325mg Tab) 650 mg PO Q4 PRN PRN Reason: for pain level 1-3 Amlodipine Besylate (Norvasc) 5 mg PO DAILY [facility] Last Admin: 06/05/17 10:00 Dose: 5 mg Aspirin (Ecotrin) 81 mg PO BID@0900,2100 [facility] Last Admin: 06/05/17 10:00 Dose: 81 mg Atorvastatin Calcium (Lipitor) 10 mg PO HS [facility] Last Admin: 06/04/17 21:01 Dose: 10 mg Cyanocobalamin (Vitamin B12) 500 mcg PO DAILY [facility] Last Admin: 06/05/17 10:00 Dose: 500 mcg Docusate Sodium (Colace) 100 mg PO BID [facility] Last Admin: 06/05/17 10:43 Dose: Not Given Enoxaparin Sodium (Lovenox) 40 mg SC DAILY [facility] PRN Reason: Protocol Last Admin: 06/05/17 08:39 Dose: 40 mg Ergocalciferol (Drisdol 50,000 Intl Units Cap) 1 cap PO MO [facility] Last Admin: 06/03/17 22:34 Dose: 1 cap Home Med (Dutasteride [Avodart]) 0.5 mg PO HS [facility] Last Admin: 06/04/17 21:01 Dose: 0.5 mg Home Med (Niacin [Niacin Er]) 750 mg PO HS [facility] Last Admin: 06/04/17 21:51 Dose: 750 mg Home Med (Silodosin [Rapaflo]) 4 mg PO 1700 [facility] Losartan Potassium (Cozaar) 100 mg PO DAILY [facility] Last Admin: 06/05/17 10:41 Dose: 100 mg Metformin HCl (Glucophage) 250 mg PO BIDWM [facility] Last Admin: 06/05/17 08:00 Dose: 250 mg Metoprolol Succinate (Toprol Xl) 100 mg PO DAILY [facility] Last Admin: 06/05/17 10:00 Dose: 100 mg Nitrofurantoin Macrocrystals (Macrobid) 100 mg PO Q12 [facility] Last Admin: 06/05/17 10:00 Dose: 100 mg Nitroglycerin (Nitro-Dur 0.4 Mg/Hr Patch) 1 patch TD DAILY [facility] Last Admin: 06/05/17 10:00 Dose: 1 patch Pantoprazole Sodium (Protonix Ec Tab) 40 mg PO DAILY [facility] Last Admin: 06/05/17 10:00 Dose: 40 mg Tramadol HCl (Ultram) 50 mg PO Q6 PRN PRN Reason: Pain, moderate (4-7) Last Admin: 06/04/17 12:44 Dose: 50 mg Physical Exam - Constitutional Appears: Well, Non-toxic, No Acute Distress - Head Exam Head Exam: ATRAUMATIC, NORMAL INSPECTION, NORMOCEPHALIC - Eye Exam Eye Exam: EOMI - ENT Exam ENT Exam: Mucous Membranes Moist - Neck Exam Neck exam: Negative for: Meningismus - Respiratory Exam Respiratory Exam: NORMAL BREATHING PATTERN - Cardiovascular Exam Cardiovascular Exam: REGULAR RHYTHM - GI/Abdominal Exam GI & Abdominal Exam: absent: Distended, Firm - Extremities Exam Extremities exam: Negative for: calf tenderness, pedal edema - Neurological Exam Neurological exam: Alert, CN II-XII Intact, Oriented x3 - Psychiatric Exam Psychiatric exam: Normal Affect, Normal Mood Results - Vital Signs Recent Vital Signs: Last Vital Signs Temp 99.7 F H 06/04/17 21:55 Pulse 90 06/05/17 10:41 Resp 20 06/04/17 21:55 BP 119/66 06/05/17 10:41 Pulse Ox 95 06/04/17 21:55 - Labs Result Diagrams: 06/05/17 05:45 06/05/17 05:45 Labs: Laboratory Results - last 24 hr 06/04/17 06/04/17 06/05/17 16:12 21:03 05:45 WBC 10.0 RBC 3.22 L Hgb 10.8 L Hct 31.6 L MCV 98.2 H MCH 33.4 H MCHC 34.0 RDW 20.4 H Plt Count 376 MPV 7.9 Neut % (Auto) 64.1 Lymph % (Auto) 17.6 L Spink % (Auto) 15.4 H Eos % (Auto) 2.5 Baso % (Auto) 0.4 Neut # (Auto) 6.4 Lymph # (Auto) 1.8 Spink # (Auto) 1.5 H Eos # (Auto) 0.3 Baso # (Auto) 0.0 Sodium Potassium Chloride Carbon Dioxide Anion Gap BUN Creatinine Est GFR ( Amer) Est GFR (Non-Af Amer) POC Glucose (mg/dL) 102 117 H Random Glucose Calcium 06/05/17 06/05/17 06/05/17 05:45 05:54 11:48 WBC RBC Hgb Hct MCV MCH MCHC RDW Plt Count MPV Neut % (Auto) Lymph % (Auto) Spink % (Auto) Eos % (Auto) Baso % (Auto) Neut # (Auto) Lymph # (Auto) Spink # (Auto) Eos # (Auto) Baso # (Auto) Sodium 141 Potassium 3.9 Chloride 100 Carbon Dioxide 32 H Anion Gap 13 BUN 11 Creatinine 0.8 Est GFR ( Amer) > 60 Est GFR (Non-Af Amer) > 60 POC Glucose (mg/dL) 107 86 Random Glucose 103 Calcium 8.9 Assessment & Plan - Assessment and Plan (Free Text) Assessment: Pain is controlled GI no constipation PT/OT to help increase functional gains ELOS 7-10 days
[2017-06-05] MEDS: SILODOSIN 4 MG PO SCH (17:17)
[2017-06-05] MEDS: NIACIN 750 MG PO SCH (21:19)
[2017-06-06] MEDS: Enoxaparin 40 mg Syringe SC SCH (08:21)
[2017-06-06] MEDS: Metoprolol Succinate 100 mg XL Tab PO SCH (08:24)
[2017-06-06] MEDS: Pantoprazole 40 mg EC Tab PO SCH (08:24)
[2017-06-06] MEDS: CYANOCOBALAMIN 500 MCG TAB PO SCH (08:26)
[2017-06-06] MEDS: Nitroglycerin 0.4 mg/hr Top Patch TD SCH (08:54)
--- NOTE | 2017-06-06 13:48 | CP.PCM.PN ---
<Familia Asencio - Last Filed: 06/06/17 13:45> Subjective - Date & Time of Evaluation Date of Evaluation: 06/06/17 Time of Evaluation: 10:55 - Subjective Subjective: Doing better, pain is well controlled, Didnt take pain meds Yesterday. Tolerating PO. Doing well on PT. Still pending eval by Urology. Aleman in place Objective - Vital Signs/Intake and Output Vital Signs (last 24 hours): Temp Pulse Resp BP Pulse Ox 98.6 F 86 20 112/63 98 06/06/17 07:45 06/06/17 08:54 06/06/17 07:45 06/06/17 08:54 06/06/17 07:45 - Medications Medications: Current Medications Acetaminophen (Tylenol 325mg Tab) 650 mg PO Q4 PRN PRN Reason: for temp 101 Acetaminophen (Tylenol 325mg Tab) 650 mg PO Q4 PRN PRN Reason: for pain level 1-3 Amlodipine Besylate (Norvasc) 5 mg PO DAILY [facility] Last Admin: 06/06/17 08:23 Dose: 5 mg Aspirin (Ecotrin) 81 mg PO BID@0900,2100 [facility] Last Admin: 06/06/17 08:22 Dose: 81 mg Atorvastatin Calcium (Lipitor) 10 mg PO HS [facility] Last Admin: 06/05/17 21:19 Dose: 10 mg Cyanocobalamin (Vitamin B12) 500 mcg PO DAILY [facility] Last Admin: 06/06/17 08:26 Dose: 500 mcg Docusate Sodium (Colace) 100 mg PO BID [facility] Last Admin: 06/06/17 08:23 Dose: 100 mg Ergocalciferol (Drisdol 50,000 Intl Units Cap) 1 cap PO MO [facility] Last Admin: 06/03/17 22:34 Dose: 1 cap Home Med (Dutasteride [Avodart]) 0.5 mg PO HS [facility] Last Admin: 06/05/17 21:20 Dose: 0.5 mg Home Med (Niacin [Niacin Er]) 750 mg PO HS [facility] Last Admin: 06/05/17 21:19 Dose: 750 mg Home Med (Silodosin [Rapaflo]) 4 mg PO 1700 [facility] Last Admin: 06/05/17 17:17 Dose: 4 mg Losartan Potassium (Cozaar) 100 mg PO DAILY [facility] Last Admin: 06/06/17 08:22 Dose: 100 mg Metformin HCl (Glucophage) 250 mg PO BIDWM [facility] Last Admin: 06/06/17 08:25 Dose: 250 mg Metoprolol Succinate (Toprol Xl) 50 mg PO DAILY [facility] Nitrofurantoin Macrocrystals (Macrobid) 100 mg PO Q12 [facility] Last Admin: 06/06/17 08:23 Dose: 100 mg Pantoprazole Sodium (Protonix Ec Tab) 40 mg PO DAILY [facility] Last Admin: 06/06/17 08:24 Dose: 40 mg Tolterodine Tartrate (Detrol) 2 mg PO BID [facility] Last Admin: 06/06/17 12:00 Dose: 2 mg Tramadol HCl (Ultram) 50 mg PO Q6 PRN PRN Reason: Pain, moderate (4-7) Last Admin: 06/04/17 12:44 Dose: 50 mg - Labs Labs: 06/05/17 05:45 06/05/17 05:45 - Constitutional Appears: Non-toxic, No Acute Distress - Eye Exam Eye Exam: EOMI, PERRL - ENT Exam ENT Exam: Mucous Membranes Moist - Neck Exam Neck Exam: Full ROM - Respiratory Exam Respiratory Exam: Clear to Ausculation Bilateral, NORMAL BREATHING PATTERN. absent: Rales - Cardiovascular Exam Cardiovascular Exam: REGULAR RHYTHM, +S1, +S2. absent: Gallop - GI/Abdominal Exam GI & Abdominal Exam: Soft, Normal Bowel Sounds. absent: Tenderness - Back Exam Back Exam: absent: CVA tenderness (L), CVA tenderness (R) - Neurological Exam Neurological Exam: Alert, Awake, Oriented x3 - Psychiatric Exam Psychiatric exam: Normal Affect, Normal Mood - Skin Skin Exam: Normal Color, Warm Assessment and Plan - Assessment and Plan (Free Text) Assessment: S/p lumbar laminectomy doing better C/W PT and current pain management Urinary retention Bladder training Start Detrol PO C/W BPH meds Pending Urology eval. <Toro Mcdaniel - Last Filed: 06/11/17 07:14> Objective - Vital Signs/Intake and Output Vital Signs (last 24 hours): Temp Pulse Resp BP Pulse Ox 98.2 F 85 20 99/62 L 99 06/10/17 20:06 06/10/17 20:06 06/10/17 20:06 06/10/17 20:06 06/10/17 20:06 - Medications Medications: Current Medications Acetaminophen (Tylenol 325mg Tab) 650 mg PO Q4 PRN PRN Reason: for temp 101 Acetaminophen (Tylenol 325mg Tab) 650 mg PO Q4 PRN PRN Reason: for pain level 1-3 Amlodipine Besylate (Norvasc) 5 mg PO DAILY [facility] Last Admin: 06/10/17 08:19 Dose: 5 mg Aspirin (Ecotrin) 81 mg PO BID@0900,2100 [facility] Last Admin: 06/10/17 21:20 Dose: 81 mg Atorvastatin Calcium (Lipitor) 10 mg PO HS [facility] Last Admin: 06/10/17 22:17 Dose: 10 mg Cyanocobalamin (Vitamin B12) 500 mcg PO DAILY [facility] Last Admin: 06/10/17 08:18 Dose: 500 mcg Docusate Sodium (Colace) 100 mg PO BID [facility] Last Admin: 06/10/17 17:27 Dose: 100 mg Ergocalciferol (Drisdol 50,000 Intl Units Cap) 1 cap PO MO [facility] Last Admin: 06/10/17 21:20 Dose: 1 cap Home Med (Dutasteride [Avodart]) 0.5 mg PO HS [facility] Last Admin: 06/10/17 22:17 Dose: 0.5 mg Home Med (Niacin [Niacin Er]) 750 mg PO HS [facility] Last Admin: 06/10/17 22:17 Dose: 750 mg Home Med (Silodosin [Rapaflo]) 4 mg PO 1700 [facility] Last Admin: 06/10/17 17:28 Dose: 4 mg Losartan Potassium (Cozaar) 100 mg PO DAILY [facility] Last Admin: 06/10/17 08:19 Dose: 100 mg Metformin HCl (Glucophage) 250 mg PO BIDWM [facility] Last Admin: 06/10/17 17:28 Dose: 250 mg Metoprolol Succinate (Toprol Xl) 50 mg PO DAILY [facility] Last Admin: 06/10/17 08:18 Dose: 50 mg Pantoprazole Sodium (Protonix Ec Tab) 40 mg PO DAILY [facility] Last Admin: 06/10/17 08:19 Dose: 40 mg Tamsulosin HCl (Flomax) 0.8 mg PO DAILY [facility] Last Admin: 06/10/17 08:18 Dose: 0.8 mg Tolterodine Tartrate (Detrol) 2 mg PO BID [facility] Last Admin: 06/10/17 17:28 Dose: 2 mg Tramadol HCl (Ultram) 50 mg PO Q6 PRN PRN Reason: Pain, moderate (4-7) Last Admin: 06/09/17 00:52 Dose: 50 mg - Labs Labs: 06/05/17 05:45 06/05/17 05:45 Assessment and Plan - Assessment and Plan (Free Text) Plan: I was present during evaluation and discussed with Dr Asencio re plans of care and mgt. Toro Mcdaniel M.D.
[2017-06-06] MEDS: SILODOSIN 4 MG PO SCH (16:26)
[2017-06-06] MEDS: NIACIN 750 MG PO SCH (21:05)
[2017-06-07] MEDS: CYANOCOBALAMIN 500 MCG TAB PO SCH (08:50)
[2017-06-07] MEDS: Metoprolol Succinate 50 mg XL Tab PO SCH (08:50)
[2017-06-07] MEDS: Pantoprazole 40 mg EC Tab PO SCH (08:51)
--- NOTE | 2017-06-07 09:15 | CP.PCM.PN ---
Subjective - Date & Time of Evaluation Date of Evaluation: 06/07/17 Time of Evaluation: 08:00 - Subjective Subjective: Patient seen and examined at bedside comfortable. His pain has improved and controlled with medications. Working with PT ambulating with no difficulties. No new complaints Objective - Vital Signs/Intake and Output Vital Signs (last 24 hours): Temp Pulse Resp BP Pulse Ox 98.8 F 86 18 127/71 96 06/06/17 15:28 06/07/17 08:50 06/06/17 15:28 06/07/17 08:50 06/06/17 15:28 - Medications Medications: Current Medications Acetaminophen (Tylenol 325mg Tab) 650 mg PO Q4 PRN PRN Reason: for temp 101 Acetaminophen (Tylenol 325mg Tab) 650 mg PO Q4 PRN PRN Reason: for pain level 1-3 Amlodipine Besylate (Norvasc) 5 mg PO DAILY [facility] Last Admin: 06/07/17 08:49 Dose: 5 mg Aspirin (Ecotrin) 81 mg PO BID@0900,2100 [facility] Last Admin: 06/07/17 08:48 Dose: 81 mg Atorvastatin Calcium (Lipitor) 10 mg PO HS [facility] Last Admin: 06/06/17 21:04 Dose: 10 mg Cyanocobalamin (Vitamin B12) 500 mcg PO DAILY [facility] Last Admin: 06/07/17 08:50 Dose: 500 mcg Docusate Sodium (Colace) 100 mg PO BID [facility] Last Admin: 06/07/17 08:49 Dose: 100 mg Ergocalciferol (Drisdol 50,000 Intl Units Cap) 1 cap PO MO [facility] Last Admin: 06/03/17 22:34 Dose: 1 cap Home Med (Dutasteride [Avodart]) 0.5 mg PO HS [facility] Last Admin: 06/06/17 22:30 Dose: 0.5 mg Home Med (Niacin [Niacin Er]) 750 mg PO HS [facility] Last Admin: 06/06/17 21:05 Dose: 750 mg Home Med (Silodosin [Rapaflo]) 4 mg PO 1700 [facility] Last Admin: 06/06/17 16:26 Dose: 4 mg Losartan Potassium (Cozaar) 100 mg PO DAILY [facility] Last Admin: 06/07/17 08:49 Dose: 100 mg Metformin HCl (Glucophage) 250 mg PO BIDWM [facility] Last Admin: 06/07/17 08:48 Dose: 250 mg Metoprolol Succinate (Toprol Xl) 50 mg PO DAILY [facility] Last Admin: 06/07/17 08:50 Dose: 50 mg Nitrofurantoin Macrocrystals (Macrobid) 100 mg PO Q12 [facility] Last Admin: 06/07/17 08:48 Dose: 100 mg Pantoprazole Sodium (Protonix Ec Tab) 40 mg PO DAILY [facility] Last Admin: 06/07/17 08:51 Dose: 40 mg Tolterodine Tartrate (Detrol) 2 mg PO BID [facility] Last Admin: 06/07/17 08:51 Dose: 2 mg Tramadol HCl (Ultram) 50 mg PO Q6 PRN PRN Reason: Pain, moderate (4-7) Last Admin: 06/07/17 05:16 Dose: 50 mg - Labs Labs: 06/05/17 05:45 06/05/17 05:45 - Back Exam Additional comments: Dressings clean, dry and intact. Dressings removed revealing wound clean and intact. mild swelling. minimal tenderness about wound - Neurological Exam Neurological Exam: Alert, Awake, Oriented x3 Neuro motor strength exam: Left Lower Extremity: 5, Right Lower Extremity: 5 Assessment and Plan - Assessment and Plan (Free Text) Assessment: Patient is POD#9 from L4-5 Laminectomy and fusion doing well. -pain control -PT/OT OOB, WBAT -Dressings changed this AM, dry dressing change every other day. -will discuss with Dr. Sweet
--- NOTE | 2017-06-07 14:39 | CP.PCM.PN ---
<Familia Asencio - Last Filed: 06/07/17 14:36> Subjective - Date & Time of Evaluation Date of Evaluation: 06/07/17 Time of Evaluation: 14:30 - Subjective Subjective: Feels better. PAin controlled. Aleman removed and since then patient is voiding small amount and c/o frequency. Denies dysuria. Has no other complains. Doing well on PT Objective - Vital Signs/Intake and Output Vital Signs (last 24 hours): Temp Pulse Resp BP Pulse Ox 98.8 F 86 18 127/71 96 06/06/17 15:28 06/07/17 08:50 06/06/17 15:28 06/07/17 08:50 06/06/17 15:28 - Medications Medications: Current Medications Acetaminophen (Tylenol 325mg Tab) 650 mg PO Q4 PRN PRN Reason: for temp 101 Acetaminophen (Tylenol 325mg Tab) 650 mg PO Q4 PRN PRN Reason: for pain level 1-3 Amlodipine Besylate (Norvasc) 5 mg PO DAILY [facility] Last Admin: 06/07/17 08:49 Dose: 5 mg Aspirin (Ecotrin) 81 mg PO BID@0900,2100 [facility] Last Admin: 06/07/17 08:48 Dose: 81 mg Atorvastatin Calcium (Lipitor) 10 mg PO HS [facility] Last Admin: 06/06/17 21:04 Dose: 10 mg Cyanocobalamin (Vitamin B12) 500 mcg PO DAILY [facility] Last Admin: 06/07/17 08:50 Dose: 500 mcg Docusate Sodium (Colace) 100 mg PO BID [facility] Last Admin: 06/07/17 08:49 Dose: 100 mg Ergocalciferol (Drisdol 50,000 Intl Units Cap) 1 cap PO MO [facility] Last Admin: 06/03/17 22:34 Dose: 1 cap Home Med (Dutasteride [Avodart]) 0.5 mg PO HS [facility] Last Admin: 06/06/17 22:30 Dose: 0.5 mg Home Med (Niacin [Niacin Er]) 750 mg PO HS [facility] Last Admin: 06/06/17 21:05 Dose: 750 mg Home Med (Silodosin [Rapaflo]) 4 mg PO 1700 [facility] Last Admin: 06/06/17 16:26 Dose: 4 mg Losartan Potassium (Cozaar) 100 mg PO DAILY [facility] Last Admin: 06/07/17 08:49 Dose: 100 mg Metformin HCl (Glucophage) 250 mg PO BIDWM [facility] Last Admin: 06/07/17 08:48 Dose: 250 mg Metoprolol Succinate (Toprol Xl) 50 mg PO DAILY [facility] Last Admin: 06/07/17 08:50 Dose: 50 mg Nitrofurantoin Macrocrystals (Macrobid) 100 mg PO Q12 [facility] Last Admin: 06/07/17 08:48 Dose: 100 mg Pantoprazole Sodium (Protonix Ec Tab) 40 mg PO DAILY [facility] Last Admin: 06/07/17 08:51 Dose: 40 mg Tolterodine Tartrate (Detrol) 2 mg PO BID [facility] Last Admin: 06/07/17 08:51 Dose: 2 mg Tramadol HCl (Ultram) 50 mg PO Q6 PRN PRN Reason: Pain, moderate (4-7) Last Admin: 06/07/17 05:16 Dose: 50 mg - Labs Labs: 06/05/17 05:45 06/05/17 05:45 - Constitutional Appears: Non-toxic, No Acute Distress - Eye Exam Eye Exam: EOMI, PERRL - ENT Exam ENT Exam: Mucous Membranes Moist - Respiratory Exam Respiratory Exam: Clear to Ausculation Bilateral, NORMAL BREATHING PATTERN. absent: Rales, Wheezes - Cardiovascular Exam Cardiovascular Exam: REGULAR RHYTHM, +S1, +S2 - GI/Abdominal Exam GI & Abdominal Exam: Soft, Normal Bowel Sounds. absent: Tenderness - Extremities Exam Extremities Exam: absent: Pedal Edema, Tenderness - Back Exam Back Exam: absent: CVA tenderness (L), CVA tenderness (R) - Neurological Exam Neurological Exam: Alert, Awake, Oriented x3 - Psychiatric Exam Psychiatric exam: Normal Affect, Normal Mood - Skin Skin Exam: Normal Color, Warm Assessment and Plan - Assessment and Plan (Free Text) Assessment: S/p lumbar laminectomy doing well Pain controlled. C/W PT and pain management Urinary retention Aleman DCed Having urinary frequency without dysuria Will order UCx C/W Current meds. Urology evaluated this AM. Awaiting recs <Toro Mcdaniel - Last Filed: 06/11/17 07:15> Objective - Vital Signs/Intake and Output Vital Signs (last 24 hours): Temp Pulse Resp BP Pulse Ox 98.2 F 85 20 99/62 L 99 06/10/17 20:06 06/10/17 20:06 06/10/17 20:06 06/10/17 20:06 06/10/17 20:06 - Medications Medications: Current Medications Acetaminophen (Tylenol 325mg Tab) 650 mg PO Q4 PRN PRN Reason: for temp 101 Acetaminophen (Tylenol 325mg Tab) 650 mg PO Q4 PRN PRN Reason: for pain level 1-3 Amlodipine Besylate (Norvasc) 5 mg PO DAILY [facility] Last Admin: 06/10/17 08:19 Dose: 5 mg Aspirin (Ecotrin) 81 mg PO BID@0900,2100 [facility] Last Admin: 06/10/17 21:20 Dose: 81 mg Atorvastatin Calcium (Lipitor) 10 mg PO HS [facility] Last Admin: 06/10/17 22:17 Dose: 10 mg Cyanocobalamin (Vitamin B12) 500 mcg PO DAILY [facility] Last Admin: 06/10/17 08:18 Dose: 500 mcg Docusate Sodium (Colace) 100 mg PO BID [facility] Last Admin: 06/10/17 17:27 Dose: 100 mg Ergocalciferol (Drisdol 50,000 Intl Units Cap) 1 cap PO MO [facility] Last Admin: 06/10/17 21:20 Dose: 1 cap Home Med (Dutasteride [Avodart]) 0.5 mg PO HS [facility] Last Admin: 06/10/17 22:17 Dose: 0.5 mg Home Med (Niacin [Niacin Er]) 750 mg PO HS [facility] Last Admin: 06/10/17 22:17 Dose: 750 mg Home Med (Silodosin [Rapaflo]) 4 mg PO 1700 [facility] Last Admin: 06/10/17 17:28 Dose: 4 mg Losartan Potassium (Cozaar) 100 mg PO DAILY [facility] Last Admin: 06/10/17 08:19 Dose: 100 mg Metformin HCl (Glucophage) 250 mg PO BIDWM [facility] Last Admin: 06/10/17 17:28 Dose: 250 mg Metoprolol Succinate (Toprol Xl) 50 mg PO DAILY [facility] Last Admin: 06/10/17 08:18 Dose: 50 mg Pantoprazole Sodium (Protonix Ec Tab) 40 mg PO DAILY [facility] Last Admin: 06/10/17 08:19 Dose: 40 mg Tamsulosin HCl (Flomax) 0.8 mg PO DAILY [facility] Last Admin: 06/10/17 08:18 Dose: 0.8 mg Tolterodine Tartrate (Detrol) 2 mg PO BID [facility] Last Admin: 06/10/17 17:28 Dose: 2 mg Tramadol HCl (Ultram) 50 mg PO Q6 PRN PRN Reason: Pain, moderate (4-7) Last Admin: 06/09/17 00:52 Dose: 50 mg - Labs Labs: 06/05/17 05:45 06/05/17 05:45 Assessment and Plan - Assessment and Plan (Free Text) Plan: I was present during evaluation and discussed with Dr Luis M casillas plans of care and tx, Toro Mcdaniel M.D.
[2017-06-07] MEDS: SILODOSIN 4 MG PO SCH (16:59)
[2017-06-07 17:44] VITALS: RESP 20
[2017-06-07] MEDS: NIACIN 750 MG PO SCH (22:05)
[2017-06-08] MEDS: Pantoprazole 40 mg EC Tab PO SCH (08:48)
[2017-06-08] MEDS: Metoprolol Succinate 50 mg XL Tab PO SCH (08:48)
[2017-06-08] MEDS: CYANOCOBALAMIN 500 MCG TAB PO SCH (08:50)
[2017-06-08] MEDS: SILODOSIN 4 MG PO SCH (16:23)
[2017-06-08] MEDS: NIACIN 750 MG PO SCH (22:00)
[2017-06-09] MEDS: Metoprolol Succinate 50 mg XL Tab PO SCH (08:59)
[2017-06-09] MEDS: CYANOCOBALAMIN 500 MCG TAB PO SCH (09:00)
[2017-06-09] MEDS: Pantoprazole 40 mg EC Tab PO SCH (09:00)
[2017-06-09] MEDS: NIACIN 750 MG PO SCH ×2 (22:25→22:26)
--- NOTE | 2017-06-10 00:09 | CP.PCM.PN ---
Subjective - Date & Time of Evaluation Date of Evaluation: 06/08/17 Time of Evaluation: 10:00 - Subjective Subjective: Patient remains stable Has no chest pain or SOB Has no fever. Able to urinate on his own Objective - Vital Signs/Intake and Output Vital Signs (last 24 hours): Temp Pulse Resp BP Pulse Ox 98.1 F 80 20 102/67 99 06/09/17 21:32 06/09/17 21:32 06/09/17 21:32 06/09/17 21:32 06/09/17 21:32 - Medications Medications: Current Medications Acetaminophen (Tylenol 325mg Tab) 650 mg PO Q4 PRN PRN Reason: for temp 101 Acetaminophen (Tylenol 325mg Tab) 650 mg PO Q4 PRN PRN Reason: for pain level 1-3 Amlodipine Besylate (Norvasc) 5 mg PO DAILY [facility] Last Admin: 06/09/17 09:00 Dose: 5 mg Aspirin (Ecotrin) 81 mg PO BID@0900,2100 [facility] Last Admin: 06/09/17 21:53 Dose: 81 mg Atorvastatin Calcium (Lipitor) 10 mg PO [facility] Last Admin: 06/09/17 21:52 Dose: 10 mg Cyanocobalamin (Vitamin B12) 500 mcg PO DAILY [facility] Last Admin: 06/09/17 09:00 Dose: 500 mcg Docusate Sodium (Colace) 100 mg PO BID [facility] Last Admin: 06/09/17 17:24 Dose: 100 mg Ergocalciferol (Drisdol 50,000 Intl Units Cap) 1 cap PO MO [facility] Last Admin: 06/03/17 22:34 Dose: 1 cap Home Med (Dutasteride [Avodart]) 0.5 mg PO [facility] Last Admin: 06/09/17 21:53 Dose: 0.5 mg Home Med (Niacin [Niacin Er]) 750 mg PO [facility] Last Admin: 06/09/17 22:26 Dose: 750 mg Home Med (Silodosin [Rapaflo]) 4 mg PO 1700 [facility] Last Admin: 06/08/17 16:23 Dose: 4 mg Losartan Potassium (Cozaar) 100 mg PO DAILY [facility] Last Admin: 06/09/17 08:58 Dose: 100 mg Metformin HCl (Glucophage) 250 mg PO BIDWM [facility] Last Admin: 06/09/17 17:25 Dose: 250 mg Metoprolol Succinate (Toprol Xl) 50 mg PO DAILY [facility] Last Admin: 06/09/17 08:59 Dose: 50 mg Pantoprazole Sodium (Protonix Ec Tab) 40 mg PO DAILY [facility] Last Admin: 06/09/17 09:00 Dose: 40 mg Tamsulosin HCl (Flomax) 0.8 mg PO DAILY [facility] Tolterodine Tartrate (Detrol) 2 mg PO BID [facility] Last Admin: 06/09/17 17:24 Dose: 2 mg Tramadol HCl (Ultram) 50 mg PO Q6 PRN PRN Reason: Pain, moderate (4-7) Last Admin: 06/09/17 00:52 Dose: 50 mg - Labs Labs: 06/05/17 05:45 06/05/17 05:45 - Head Exam Head Exam: NORMAL INSPECTION - Eye Exam Eye Exam: Normal appearance - ENT Exam ENT Exam: Mucous Membranes Moist - Respiratory Exam Respiratory Exam: Clear to Ausculation Bilateral - Cardiovascular Exam Cardiovascular Exam: REGULAR RHYTHM - Neurological Exam Neurological Exam: Awake, Oriented x3 Assessment and Plan (1) Back pain Status: Acute (2) Herniated lumbar intervertebral disc Status: Acute (3) Hypertension Status: Acute (4) Lumbar spondylosis Status: Acute (5) Postoperative urinary retention Status: Acute - Assessment and Plan (Free Text) Plan: Cont meds cont tx follow up with urology cont PT
--- NOTE | 2017-06-10 00:11 | CP.PCM.PN ---
Subjective - Date & Time of Evaluation Date of Evaluation: 06/09/17 Time of Evaluation: 14:20 - Subjective Subjective: Patient had another episode of urinary retention Currently on flomax and sutasteride, Aleman cath was reinserted. Has no chest pain or SOB Had good sleep Tolerating PT Objective - Vital Signs/Intake and Output Vital Signs (last 24 hours): Temp Pulse Resp BP Pulse Ox 98.1 F 80 20 102/67 99 06/09/17 21:32 06/09/17 21:32 06/09/17 21:32 06/09/17 21:32 06/09/17 21:32 - Medications Medications: Current Medications Acetaminophen (Tylenol 325mg Tab) 650 mg PO Q4 PRN PRN Reason: for temp 101 Acetaminophen (Tylenol 325mg Tab) 650 mg PO Q4 PRN PRN Reason: for pain level 1-3 Amlodipine Besylate (Norvasc) 5 mg PO DAILY [facility] Last Admin: 06/09/17 09:00 Dose: 5 mg Aspirin (Ecotrin) 81 mg PO BID@0900,2100 [facility] Last Admin: 06/09/17 21:53 Dose: 81 mg Atorvastatin Calcium (Lipitor) 10 mg PO HS [facility] Last Admin: 06/09/17 21:52 Dose: 10 mg Cyanocobalamin (Vitamin B12) 500 mcg PO DAILY [facility] Last Admin: 06/09/17 09:00 Dose: 500 mcg Docusate Sodium (Colace) 100 mg PO BID [facility] Last Admin: 06/09/17 17:24 Dose: 100 mg Ergocalciferol (Drisdol 50,000 Intl Units Cap) 1 cap PO MO [facility] Last Admin: 06/03/17 22:34 Dose: 1 cap Home Med (Dutasteride [Avodart]) 0.5 mg PO HS [facility] Last Admin: 06/09/17 21:53 Dose: 0.5 mg Home Med (Niacin [Niacin Er]) 750 mg PO HS [facility] Last Admin: 06/09/17 22:26 Dose: 750 mg Home Med (Silodosin [Rapaflo]) 4 mg PO 1700 [facility] Last Admin: 06/08/17 16:23 Dose: 4 mg Losartan Potassium (Cozaar) 100 mg PO DAILY [facility] Last Admin: 06/09/17 08:58 Dose: 100 mg Metformin HCl (Glucophage) 250 mg PO BIDWM [facility] Last Admin: 06/09/17 17:25 Dose: 250 mg Metoprolol Succinate (Toprol Xl) 50 mg PO DAILY [facility] Last Admin: 06/09/17 08:59 Dose: 50 mg Pantoprazole Sodium (Protonix Ec Tab) 40 mg PO DAILY [facility] Last Admin: 06/09/17 09:00 Dose: 40 mg Tamsulosin HCl (Flomax) 0.8 mg PO DAILY [facility] Tolterodine Tartrate (Detrol) 2 mg PO BID [facility] Last Admin: 06/09/17 17:24 Dose: 2 mg Tramadol HCl (Ultram) 50 mg PO Q6 PRN PRN Reason: Pain, moderate (4-7) Last Admin: 06/09/17 00:52 Dose: 50 mg - Labs Labs: 06/05/17 05:45 06/05/17 05:45 - Head Exam Head Exam: NORMAL INSPECTION - Eye Exam Eye Exam: Normal appearance - Respiratory Exam Respiratory Exam: Clear to Ausculation Bilateral - Cardiovascular Exam Cardiovascular Exam: REGULAR RHYTHM - GI/Abdominal Exam GI & Abdominal Exam: Soft Assessment and Plan (1) Urinary retention Status: Acute (2) Gait abnormality Status: Acute (3) Benign prostate hyperplasia Status: Acute (4) Herniated lumbar intervertebral disc Status: Acute (5) Hypertension Status: Acute - Assessment and Plan (Free Text) Plan: Cont meds Follow up with Dr david lewis PT
[2017-06-10] MEDS: CYANOCOBALAMIN 500 MCG TAB PO SCH (08:18)
[2017-06-10] MEDS: Metoprolol Succinate 50 mg XL Tab PO SCH (08:18)
[2017-06-10] MEDS: Pantoprazole 40 mg EC Tab PO SCH (08:19)
--- NOTE | 2017-06-10 08:22 | CON ---
DATE: 06/07/2017 HISTORY OF PRESENT ILLNESS: This is a 72-year-old male with urinary retention. The patient had previous history of enlarged prostate. The patient has Aleman in place, in good position and clear urine. The patient awaiting arrival of primary doctor, Dr. Martin for follow up care. IMPRESSION AND PLAN: At this point, the patient is stable. No fevers. He is also experienced on rehab for low back pain. The patient will definitely follow with Dr. Martin to the hospital. Darrell Reynolds MD
--- NOTE | 2017-06-10 16:07 | CP.PCM.PN ---
Subjective - Date & Time of Evaluation Date of Evaluation: 06/10/17 Time of Evaluation: 10:00 - Subjective Subjective: Pt family seen ursula discuss plan for Christiano.I will during this [place] schedule cystoscopy and at the same time request a pelvic ultrasound for prostate measurement. Depending on results he might be a candidate for definitive surgery will see my schedule to accomodate Christiano Objective - Vital Signs/Intake and Output Vital Signs (last 24 hours): Temp Pulse Resp BP Pulse Ox 100.0 F H 85 20 128/73 95 06/10/17 09:22 06/10/17 09:22 06/10/17 09:22 06/10/17 09:22 06/10/17 09:22 - Medications Medications: Current Medications Acetaminophen (Tylenol 325mg Tab) 650 mg PO Q4 PRN PRN Reason: for temp 101 Acetaminophen (Tylenol 325mg Tab) 650 mg PO Q4 PRN PRN Reason: for pain level 1-3 Amlodipine Besylate (Norvasc) 5 mg PO DAILY [facility] Last Admin: 06/10/17 08:19 Dose: 5 mg Aspirin (Ecotrin) 81 mg PO BID@0900,2100 [facility] Last Admin: 06/10/17 08:19 Dose: 81 mg Atorvastatin Calcium (Lipitor) 10 mg PO HS [facility] Last Admin: 06/09/17 21:52 Dose: 10 mg Cyanocobalamin (Vitamin B12) 500 mcg PO DAILY [facility] Last Admin: 06/10/17 08:18 Dose: 500 mcg Docusate Sodium (Colace) 100 mg PO BID [facility] Last Admin: 06/10/17 08:18 Dose: 100 mg Ergocalciferol (Drisdol 50,000 Intl Units Cap) 1 cap PO MO [facility] Last Admin: 06/03/17 22:34 Dose: 1 cap Home Med (Dutasteride [Avodart]) 0.5 mg PO HS [facility] Last Admin: 06/09/17 21:53 Dose: 0.5 mg Home Med (Niacin [Niacin Er]) 750 mg PO HS [facility] Last Admin: 06/09/17 22:26 Dose: 750 mg Home Med (Silodosin [Rapaflo]) 4 mg PO 1700 [facility] Last Admin: 06/08/17 16:23 Dose: 4 mg Losartan Potassium (Cozaar) 100 mg PO DAILY [facility] Last Admin: 06/10/17 08:19 Dose: 100 mg Metformin HCl (Glucophage) 250 mg PO BIDWM [facility] Last Admin: 06/10/17 08:18 Dose: 250 mg Metoprolol Succinate (Toprol Xl) 50 mg PO DAILY [facility] Last Admin: 06/10/17 08:18 Dose: 50 mg Pantoprazole Sodium (Protonix Ec Tab) 40 mg PO DAILY [facility] Last Admin: 06/10/17 08:19 Dose: 40 mg Tamsulosin HCl (Flomax) 0.8 mg PO DAILY [facility] Last Admin: 06/10/17 08:18 Dose: 0.8 mg Tolterodine Tartrate (Detrol) 2 mg PO BID [facility] Last Admin: 06/10/17 08:18 Dose: 2 mg Tramadol HCl (Ultram) 50 mg PO Q6 PRN PRN Reason: Pain, moderate (4-7) Last Admin: 06/09/17 00:52 Dose: 50 mg - Labs Labs: 06/05/17 05:45 06/05/17 05:45
[2017-06-10] MEDS: SILODOSIN 4 MG PO SCH (17:28)
[2017-06-10] MEDS: Ergocalciferol 50,000 Intl Units Cap PO SCH (21:20)
[2017-06-10] MEDS: NIACIN 750 MG PO SCH (22:17)
--- NOTE | 2017-06-11 07:21 | CP.PCM.PN ---
Subjective - Date & Time of Evaluation Date of Evaluation: 06/10/17 Time of Evaluation: 10:30 - Subjective Subjective: Patient remains on boyd Has no chest pain or SOB Doing well with PT Was seen by Dr Paniagua and will have prostate US and possibly cystoscopy Objective - Vital Signs/Intake and Output Vital Signs (last 24 hours): Temp Pulse Resp BP Pulse Ox 98.2 F 85 20 99/62 L 99 06/10/17 20:06 06/10/17 20:06 06/10/17 20:06 06/10/17 20:06 06/10/17 20:06 - Medications Medications: Current Medications Acetaminophen (Tylenol 325mg Tab) 650 mg PO Q4 PRN PRN Reason: for temp 101 Acetaminophen (Tylenol 325mg Tab) 650 mg PO Q4 PRN PRN Reason: for pain level 1-3 Amlodipine Besylate (Norvasc) 5 mg PO DAILY [facility] Last Admin: 06/10/17 08:19 Dose: 5 mg Aspirin (Ecotrin) 81 mg PO BID@0900,2100 [facility] Last Admin: 06/10/17 21:20 Dose: 81 mg Atorvastatin Calcium (Lipitor) 10 mg PO HS [facility] Last Admin: 06/10/17 22:17 Dose: 10 mg Cyanocobalamin (Vitamin B12) 500 mcg PO DAILY [facility] Last Admin: 06/10/17 08:18 Dose: 500 mcg Docusate Sodium (Colace) 100 mg PO BID [facility] Last Admin: 06/10/17 17:27 Dose: 100 mg Ergocalciferol (Drisdol 50,000 Intl Units Cap) 1 cap PO MO [facility] Last Admin: 06/10/17 21:20 Dose: 1 cap Home Med (Dutasteride [Avodart]) 0.5 mg PO HS [facility] Last Admin: 06/10/17 22:17 Dose: 0.5 mg Home Med (Niacin [Niacin Er]) 750 mg PO HS [facility] Last Admin: 06/10/17 22:17 Dose: 750 mg Home Med (Silodosin [Rapaflo]) 4 mg PO 1700 [facility] Last Admin: 06/10/17 17:28 Dose: 4 mg Losartan Potassium (Cozaar) 100 mg PO DAILY [facility] Last Admin: 06/10/17 08:19 Dose: 100 mg Metformin HCl (Glucophage) 250 mg PO BIDWM [facility] Last Admin: 06/10/17 17:28 Dose: 250 mg Metoprolol Succinate (Toprol Xl) 50 mg PO DAILY [facility] Last Admin: 06/10/17 08:18 Dose: 50 mg Pantoprazole Sodium (Protonix Ec Tab) 40 mg PO DAILY [facility] Last Admin: 06/10/17 08:19 Dose: 40 mg Tamsulosin HCl (Flomax) 0.8 mg PO DAILY [facility] Last Admin: 06/10/17 08:18 Dose: 0.8 mg Tolterodine Tartrate (Detrol) 2 mg PO BID [facility] Last Admin: 06/10/17 17:28 Dose: 2 mg Tramadol HCl (Ultram) 50 mg PO Q6 PRN PRN Reason: Pain, moderate (4-7) Last Admin: 06/09/17 00:52 Dose: 50 mg - Labs Labs: 06/05/17 05:45 06/05/17 05:45 - Head Exam Head Exam: NORMAL INSPECTION - Eye Exam Eye Exam: Normal appearance - Respiratory Exam Respiratory Exam: Clear to Ausculation Bilateral Assessment and Plan (1) Urinary retention Status: Acute (2) Gait abnormality Status: Acute (3) Benign prostate hyperplasia Status: Acute (4) Herniated lumbar intervertebral disc Status: Acute (5) Hypertension Status: Acute - Assessment and Plan (Free Text) Plan: Cont meds Cont tx Cont PT follow up with DR Paniagua.
[2017-06-11] MEDS: Pantoprazole 40 mg EC Tab PO SCH (08:22)
[2017-06-11] MEDS: Metoprolol Succinate 50 mg XL Tab PO SCH (08:23)
[2017-06-11] MEDS: CYANOCOBALAMIN 500 MCG TAB PO SCH (08:24)
--- NOTE | 2017-06-11 08:51 | CON ---
DATE: 06/07/2017 HISTORY OF PRESENT ILLNESS: This is a 72-year-old male patient who I was called to evaluate following back surgery that he had. The patient had developed repetitive urinary retention. According to the patient, this is not a condition that just happened after the surgical procedure. He has been having difficulty urinating in the past with episodes of retention in the past as well. He was seen once in my office in 2016, already having a history of symptomatic prostatism. The patient at that time never proceeded to any further evaluation, but now he is seen today with a catheter and postop lower back surgery. So, the patient was recommended at this time, I told him that he was on Flomax 0.4 mg on a daily basis already and that we would give him another voiding trial and if the patient failed a success of voiding trial, then I would probably recommend a complete urologic workup including cystoscopy and prostate ultrasound to assess the potential possibility of surgical intervention. The order was given to the nurses to remove the Aleman catheter today and to call me if the patient is not voiding and after several hours to do a postvoid residual to be sure that he is not retaining significant amounts of urine. Anjelica Martin MD
[2017-06-11] MEDS: SILODOSIN 4 MG PO SCH (16:54)
[2017-06-11] MEDS: NIACIN 750 MG PO SCH (21:32)
[2017-06-12] MEDS: CYANOCOBALAMIN 500 MCG TAB PO SCH (08:47)
[2017-06-12] MEDS: Pantoprazole 40 mg EC Tab PO SCH (08:47)
[2017-06-12] MEDS: Metoprolol Succinate 50 mg XL Tab PO SCH (08:47)
--- NOTE | 2017-06-12 10:48 | CP.PCM.PN ---
Subjective - Date & Time of Evaluation Date of Evaluation: 06/12/17 Time of Evaluation: 11:05 - Subjective Subjective: Stable, no acute events overnight, Sx dressing changed last night, seems intact. Aleman with 200 cc of yellowish urine. Tolerating PO. Doing well on PT. Pain controlled Objective - Vital Signs/Intake and Output Vital Signs (last 24 hours): Temp Pulse Resp BP Pulse Ox 98.8 F 94 H 20 117/69 98 06/12/17 08:21 06/12/17 09:31 06/12/17 08:21 06/12/17 08:47 06/12/17 09:31 - Medications Medications: Current Medications Acetaminophen (Tylenol 325mg Tab) 650 mg PO Q4 PRN PRN Reason: for temp 101 Acetaminophen (Tylenol 325mg Tab) 650 mg PO Q4 PRN PRN Reason: for pain level 1-3 Amlodipine Besylate (Norvasc) 5 mg PO DAILY [facility] Last Admin: 06/12/17 08:47 Dose: 5 mg Aspirin (Ecotrin) 81 mg PO BID@0900,2100 [facility] Last Admin: 06/12/17 08:46 Dose: 81 mg Atorvastatin Calcium (Lipitor) 10 mg PO HS [facility] Last Admin: 06/11/17 21:32 Dose: 10 mg Cyanocobalamin (Vitamin B12) 500 mcg PO DAILY [facility] Last Admin: 06/12/17 08:47 Dose: 500 mcg Docusate Sodium (Colace) 100 mg PO BID [facility] Last Admin: 06/12/17 08:45 Dose: 100 mg Ergocalciferol (Drisdol 50,000 Intl Units Cap) 1 cap PO MO [facility] Last Admin: 06/10/17 21:20 Dose: 1 cap Home Med (Dutasteride [Avodart]) 0.5 mg PO HS [facility] Last Admin: 06/11/17 21:06 Dose: 0.5 mg Home Med (Niacin [Niacin Er]) 750 mg PO HS [facility] Last Admin: 06/11/17 21:32 Dose: 750 mg Home Med (Silodosin [Rapaflo]) 4 mg PO 1700 [facility] Last Admin: 06/11/17 16:54 Dose: 4 mg Losartan Potassium (Cozaar) 100 mg PO DAILY [facility] Last Admin: 06/12/17 08:46 Dose: 100 mg Metformin HCl (Glucophage) 250 mg PO BIDWM [facility] Last Admin: 06/12/17 08:46 Dose: 250 mg Metoprolol Succinate (Toprol Xl) 50 mg PO DAILY [facility] Last Admin: 06/12/17 08:47 Dose: 50 mg Pantoprazole Sodium (Protonix Ec Tab) 40 mg PO DAILY [facility] Last Admin: 06/12/17 08:47 Dose: 40 mg Tamsulosin HCl (Flomax) 0.8 mg PO DAILY [facility] Last Admin: 06/12/17 08:46 Dose: 0.8 mg Tolterodine Tartrate (Detrol) 2 mg PO BID [facility] Last Admin: 06/12/17 08:46 Dose: 2 mg Tramadol HCl (Ultram) 50 mg PO Q6 PRN PRN Reason: Pain, moderate (4-7) Last Admin: 06/09/17 00:52 Dose: 50 mg - Labs Labs: 06/05/17 05:45 06/05/17 05:45 - Constitutional Appears: Non-toxic, No Acute Distress - Head Exam Head Exam: NORMAL INSPECTION - Eye Exam Eye Exam: EOMI, Normal appearance, PERRL - ENT Exam ENT Exam: Mucous Membranes Moist - Respiratory Exam Respiratory Exam: Clear to Ausculation Bilateral, NORMAL BREATHING PATTERN. absent: Decreased Breath Sounds, Rales - Cardiovascular Exam Cardiovascular Exam: REGULAR RHYTHM, +S1, +S2. absent: Gallop - GI/Abdominal Exam GI & Abdominal Exam: Soft, Normal Bowel Sounds. absent: Tenderness - Extremities Exam Extremities Exam: Pedal Edema (+1). absent: Calf Tenderness - Back Exam Back Exam: absent: CVA tenderness (L), CVA tenderness (R) - Neurological Exam Neurological Exam: Alert, Awake, Oriented x3 - Psychiatric Exam Psychiatric exam: Normal Affect, Normal Mood - Skin Skin Exam: Normal Color, Warm Assessment and Plan - Assessment and Plan (Free Text) Assessment: s/P lumbar laminectomy doing well Urinary retention Aleman in place As per Urology patient to f/u as outpatient after DC C/W Current plan
[2017-06-12] MEDS: SILODOSIN 4 MG PO SCH (17:02)
[2017-06-12] MEDS: NIACIN 750 MG PO SCH (21:00)
[2017-06-13 08:11] VITALS: BP 111/66; PULSE 81; TEMP 98.4; O2SAT 99
[2017-06-13] MEDS: Pantoprazole 40 mg EC Tab PO SCH (08:20)
[2017-06-13] MEDS: Metoprolol Succinate 50 mg XL Tab PO SCH (08:21)
[2017-06-13] MEDS: CYANOCOBALAMIN 500 MCG TAB PO SCH (08:21)
--- NOTE | 2017-06-13 10:34 | CP.PCM.DIS ---
Provider - Provider Date of Admission: 06/03/17 20:45 Attending physician: Toro Mcdaniel MD Primary care physician: Dr Mcdaniel Consults: Urology Neurosurgery Time Spent in preparation of Discharge (in minutes): 30 Diagnosis - Discharge Diagnosis (1) Herniated lumbar intervertebral disc Status: Chronic Comment: S/P lumbar laminectomy. Stable (2) Postoperative urinary retention Status: Acute Comment: Evaluated by Urology. To f/u as outpatient. DC with Boyd (3) Benign prostate hyperplasia Status: Chronic Comment: C/W meds. F/U with Dr Martin [facility] Course - Lab Results Lab Results: Micro Results 06/07/17 09:45 Urine,Clean Catch Urine Culture - Final No Growth (<1,000 CFU/ML) Most Recent Lab Values WBC 10.0 K/uL (4.8-10.8) 06/05/17 05:45 RBC 3.22 Mil/uL (4.40-5.90) L 06/05/17 05:45 Hgb 10.8 g/dL (12.0-18.0) L 06/05/17 05:45 Hct 31.6 % (35.0-51.0) L 06/05/17 05:45 MCV 98.2 fl (80.0-94.0) H 06/05/17 05:45 MCH 33.4 pg (27.0-31.0) H 06/05/17 05:45 MCHC 34.0 g/dL (33.0-37.0) 06/05/17 05:45 RDW 20.4 % (11.5-14.5) H 06/05/17 05:45 Plt Count 376 K/uL (130-400) 06/05/17 05:45 MPV 7.9 fl (7.2-11.7) 06/05/17 05:45 Neut % (Auto) 64.1 % (50.0-75.0) 06/05/17 05:45 Lymph % (Auto) 17.6 % (20.0-40.0) L 06/05/17 05:45 [place] % (Auto) 15.4 % (0.0-10.0) H 06/05/17 05:45 Eos % (Auto) 2.5 % (0.0-4.0) 06/05/17 05:45 Baso % (Auto) 0.4 % (0.0-2.0) 06/05/17 05:45 Neut # (Auto) 6.4 K/uL (1.8-7.0) 06/05/17 05:45 Lymph # (Auto) 1.8 K/uL (1.0-4.3) 06/05/17 05:45 [place] # (Auto) 1.5 K/uL (0.0-0.8) H 06/05/17 05:45 Eos # (Auto) 0.3 K/uL (0.0-0.7) 06/05/17 05:45 Baso # (Auto) 0.0 K/uL (0.0-0.2) 06/05/17 05:45 Sodium 141 mmol/l (132-148) 06/05/17 05:45 Potassium 3.9 MMOL/L (3.6-5.0) 06/05/17 05:45 Chloride 100 mmol/L (98-107) 06/05/17 05:45 Carbon Dioxide 32 mmol/L (22-30) H 06/05/17 05:45 Anion Gap 13 (10-20) 06/05/17 05:45 BUN 11 mg/dl (9-20) 06/05/17 05:45 Creatinine 0.8 mg/dl (0.8-1.5) 06/05/17 05:45 Est GFR ( Amer) > 60 06/05/17 05:45 Est GFR (Non-Af Amer) > 60 06/05/17 05:45 POC Glucose (mg/dL) 90 mg/dL (65-110) 06/13/17 05:32 Random Glucose 103 mg/dL (75-110) 06/05/17 05:45 Calcium 8.9 mg/dL (8.4-10.2) 06/05/17 05:45 - Hospital Course Hospital Course: 72 y/o M s/p lumbar laminectomy that was admitted to TCU unit after sx for PT services. Developed urinary retention after Sx that didnt improved with pharmacologic treatment and Boyd catheter had to be placed in. He progressed very well from the Sx POV and did well on PT. For Urinary retention he was evaluated by Urology who recommended definitive procedure as outpatient once patient is DC from hosp. Today after finishing PT he is being DC home stable, boyd cat placed in and instruction given how to take care of it until evaluated by Urology next week. Discharge Exam - Head Exam Head Exam: NORMAL INSPECTION - Eye Exam Eye Exam: PERRL - ENT Exam ENT Exam: Mucous Membranes Moist - Respiratory Exam Respiratory Exam: Clear to PA & Lateral, NORMAL BREATHING PATTERN, UNREMARKABLE - Cardiovascular Exam Cardiovascular Exam: REGULAR RHYTHM, +S1, +S2. absent: Gallop - GI/Abdominal Exam GI & Abdominal Exam: Normal Bowel Sounds, Unremarkable. absent: Distended, Rigid - Extremities Exam Extremities exam: full ROM, pedal edema (trace) - Back Exam Back exam: absent: CVA tenderness (L), CVA tenderness (R) - Neurological Exam Neurological exam: Alert, CN II-XII Intact, Oriented x3 - Psychiatric Exam Psychiatric exam: Normal Affect, Normal Mood - Skin Skin Exam: Normal Color, Warm Discharge Plan - Follow Up Plan Condition: STABLE Disposition: HOME/ ROUTINE Patient education suggested?: Yes Instructions: How to Care for Your Boyd Catheter, Male, Boyd Catheter, Male Additional Instructions: F/U with Dr headley next saturday F/U with Dr Veronica DENISE at his office F/U with Dr Mcdaniel next week Referrals: Teo Headley MD [Staff Provider] - Anjelica Martin MD [Medical Doctor] - Toro Mcdaniel MD [Family Provider] -
== END 2017-06-13 15:45 | disposition home health service (06) | DRG 560 ==
LOC: H.TCU 20:45
PROVIDERS: ADMIT Family Medicine; ATTEND Family Medicine
PROC: F07Z9FZ Gait Training/Functional Ambulation Treatment using Assistive, Adaptive, Supportive or Protective Equipment (ICD-10-PCS; principal; 2017-06-03)
PROC: F08Z4FZ Home Management Treatment using Assistive, Adaptive, Supportive or Protective Equipment (ICD-10-PCS; 2017-06-03)
PROC: F07L6FZ Therapeutic Exercise Treatment of Musculoskeletal System - Lower Back / Lower Extremity using Assistive, Adaptive, Supportive or Protective Equipment (ICD-10-PCS; 2017-06-04)
DX: Z47.89 Encounter for other orthopedic aftercare (principal); N39.0 Urinary tract infection, site not specified; E11.9 Type 2 diabetes mellitus without complications; R26.89 Other abnormalities of gait and mobility; Z98.890 Other specified postprocedural states; M47.816 Spondylosis without myelopathy or radiculopathy, lumbar region; I10 Essential (primary) hypertension; N40.1 Benign prostatic hyperplasia with lower urinary tract symptoms; R33.8 Other retention of urine; R35.0 Frequency of micturition; Z87.891 Personal history of nicotine dependence

== ENCOUNTER 2017-07-01 06:12 | Day surgery (SDC) | payer MEDICARE ==
[2017-06-28 10:20] VITALS: BMI 28.1
[2017-07-01] MEDS ORDERED: Propofol 10 mg/ml Inj (20 ML) ONE ×2 (07:03→09:08)
[2017-07-01] MEDS ORDERED: Sodium Chloride 0.9% 10 ML IV ONE (07:04)
[2017-07-01] MEDS ORDERED: Succinylcholine 200 mg/10 ml Inj IV ONE (07:04)
[2017-07-01] MEDS ORDERED: Rocuronium 10 mg/ml (5 ml) ONE (07:04)
[2017-07-01] MEDS ORDERED: Lactated Ringer's 1,000 ML IV ONE (07:10)
[2017-07-01] MEDS ORDERED: Phenylephrine 10 mg/ml Inj ONE (07:10)
[2017-07-01] MEDS ORDERED: ePHEDrine 50 mg/ml Inj ONE (07:10)
[2017-07-01] MEDS ORDERED: Lidocaine 2% Jelly (Uro-Jet) ONE (07:42)
[2017-07-01] MEDS ORDERED: cefTRIAXone (Rocephin) 1 gm Inj ONE (07:42)
[2017-07-01] MEDS ORDERED: Midazolam 2 MG/2 ML VIAL ONE (08:01)
[2017-07-01] MEDS ORDERED: Sevoflurane - Inhalation Anesthetic Liq (250 ml) ONE (08:08)
[2017-07-01] MEDS ORDERED: Morphine 4 MG/ML VIAL IVP PRN (09:23)
[2017-07-01 10:52] VITALS: O2SAT 97
--- NOTE | 2017-07-01 12:48 | OP ---
PROCEDURE DATE: 07/01/2017 PREOPERATIVE DIAGNOSES: Obstructive uropathy and benign prostatic hypertrophy. POSTOPERATIVE DIAGNOSES: Obstructive uropathy and benign prostatic hypertrophy. PROCEDURE PERFORMED: GreenLight laser of the prostate. DESCRIPTION OF PROCEDURE: The patient on the operating room table in a dorsal lithotomy position, given general anesthesia. The area of the groin was draped and prepped in the sterile manner. Using a laser scope, I entered into the bladder atraumatically. There appeared to be some string like material in the urethra, but with the lasering it seem to have dissolved completely. I identified the landmarks of the verumontanum laterally and then at the level of the bladder neck and then I began to resect the prostate, using GreenLight laser. We estimated blood loss had about 20 mL, I used around 230,000 joules of energy for the procedure. At the end from the verumontanum, there was a clear opening into the bladder. I then removed the instrumentation and inserted a number 22 three-way Aleman catheter. The initial outflow was clear. The patient was taken from the operating room in good condition. Anjelica Martin MD
[2017-07-01 13:44] VITALS: BP 127/72; PULSE 88; RESP 20; TEMP 98.1
== END 2017-07-01 12:35 | disposition home or self-care (01) ==
LOC: H.OPSURG 06:12
PROVIDERS: ATTEND Urology
DX: R33.8 Other retention of urine (principal); N13.8 Other obstructive and reflux uropathy; E11.9 Type 2 diabetes mellitus without complications; E78.5 Hyperlipidemia, unspecified; I10 Essential (primary) hypertension; K21.9 Gastro-esophageal reflux disease without esophagitis; N40.1 Benign prostatic hyperplasia with lower urinary tract symptoms
CPT/HCPCS: 52648; 82948; J0330; J0696; J2250; J2270; J2370; J2405; J2704; J3010; J7120

== ENCOUNTER 2018-03-20 07:43 | Day surgery (SDC) | payer MEDICARE ==
[2017-06-28 10:20] VITALS: BMI 28.1
[2018-03-20] MEDS ORDERED: Lactated Ringer's 500 ML IV ONE (08:30)
[2018-03-20] MEDS ORDERED: Propofol 10 mg/ml Inj (20 ML) ONE (09:44)
[2018-03-20 10:12] VITALS: RESP 16; TEMP 97
[2018-03-20 10:33] VITALS: BP 107/56; PULSE 91; O2SAT 99
== END 2018-03-20 11:20 | disposition home or self-care (01) ==
LOC: H.ENDO 07:43
PROVIDERS: ATTEND Internal Medicine Gastroenterology
DX: Z12.11 Encounter for screening for malignant neoplasm of colon (principal); E11.9 Type 2 diabetes mellitus without complications; E78.5 Hyperlipidemia, unspecified; I10 Essential (primary) hypertension; K64.8 Other hemorrhoids
CPT/HCPCS: 45378; J2001; J2704; J7120